=== PATIENT | female | born 1960 | race Caucasian/White ===

== ENCOUNTER 2020-02-14 13:46 | Outpatient (CLI) | payer BC, SELFPAY ==
--- NOTE | ~2020-02-14 | XR_ITS ---
EXAMINATION: XR chest 2V 02/14/2020 15:11 INDICATION: History of hypertension PROCEDURE: 2 view chest COMPARISON: 07/19/2019 FINDINGS: The lungs are clear. The cardiomediastinal silhouette is within normal limits. There are no pleural effusions. There is no pneumothorax suspected. IMPRESSION: 1: NO ACUTE CARDIOPULMONARY DISEASE. Reviewed, dictated and finalized at location B.
[2020-02-14 15:13] LABS: Basophils Percent Auto 0.7 % (0.2-1.2); Eosinophils Absolute Auto 0.1 K/mm3 (0-0.3); Eosinophils Percent Auto 2.7 % (0-4.4); Hematocrit 40.7 % (37.0-47.0); Hemoglobin 13.3 g/dL (12.0-15.0); Immature Granulocyte Absolute 0.01 K/mm3 (0.00-0.031); Immature Granulocyte Percent A 0.2 % (0-0.5); Lymphocytes Percent Auto 33.8 % (18.3-44.2); Mean Corpuscular HGB Conc 32.7 g/dl (32-36); Mean Corpuscular Volume 88.9 fl (80-100); Mean Platelet Volume 9.8 fl (7.4-10.4); Monocytes Absolute Auto 0.3 K/mm3 (0.1-0.6); Monocytes Percent Auto 6.8 % (2.6-8.5); Neutrophils Absolute Auto 2.3 K/mm3 (1.3-6.7); Neutrophils Percent Auto 55.8 % (45.5-73.1); Platelet Count Result 221 k/mm3 (150-375); Red Blood Count 4.58 M/mm3 (4.2-5.4); Red Cell Distribution Width 14.8 % (11.5-14.5); White Blood Count 4.1 K/mm3 (4.5-10.0)
[2020-02-14 15:18] LABS: Albumin Level 4.2 g/dL (3.5-5.1); Blood Urea Nitrogen 16 mg/dL (7-17); Calcium 9.3 mg/dL (8.4-10.2); Carbon Dioxide 28 mmol/L (22-30); Chloride 104 mmol/L (98-107); Estimated Glomerular Filt Rate 51; Glucose 91 mg/dL (65-105); Potassium 3.9 mmol/L (3.4-5.0); Sodium 137 mmol/L (137-145)
[2020-02-14 15:20] LABS: Hemoglobin A1C 5.4 % (<5.7)
[2020-02-14 16:00] LABS: Urine Cotinine NEGATIVE
== END 2020-02-14 13:47 | disposition home or self-care (01) ==
LOC: ANHSURGERY 13:49
PROVIDERS: PCP Physician Assistant; Visit Provider Orthopaedic Surgery
DX: M17.12 Unilateral primary osteoarthritis, left knee (principal)
CPT/HCPCS: 36415; 71046; 80048; 80307; 82040; 83036; 85025; 87070

== ENCOUNTER 2020-03-04 01:17 | Outpatient (CLI) | payer BC, SELFPAY ==
[2020-03-04 16:17] LABS: SARS-CoV-2 RNA PCR Negative
== END 2020-03-04 01:18 | disposition home or self-care (01) ==
LOC: ANHCOVIDDT 01:17
PROVIDERS: PCP Physician Assistant; Visit Provider Orthopaedic Surgery
DX: Z01.812 Encounter for preprocedural laboratory examination (principal); Z11.59 Encounter for screening for other viral diseases
CPT/HCPCS: 87635; C9803; U0003

== ENCOUNTER 2020-03-06 01:05 | Day surgery (SDC) | payer BC, SELFPAY ==
[2020-02-14 13:54] VITALS: BMI 33.8
[2020-02-14 14:53] VITALS: BP 147/96; PULSE 64; RESP 18; TEMP 36.9; O2SAT 100
--- NOTE | 2020-03-05 07:03 | HP_ITS ---
DATE OF SERVICE: ADMISSION DIAGNOSIS: Degenerative joint disease, left knee. HISTORY OF PRESENT ILLNESS: The patient is a 60-year-old female patient of Dr. Lamine Reis, presents today for left total knee arthroplasty. She underwent right total knee arthroplasty by Dr. Gutierrez in August of this year. She is very happy with her results. Knee is not hurting her at all. Her left knee unfortunately has [id number] arthritis, medial compartment, with moderate patellofemoral arthritis. She has had continued symptoms in the knee and feels at this point she would like to proceed with left total knee arthroplasty. PAST MEDICAL HISTORY: She had complications from her right total knee. Cardiac complications, she developed a stress-induced cardiomyopathy with a blood clot that developed in her left ventricle 1 week postop. This was treated with high-dose blood thinners and within a month, blood clot had resolved. She also had a decrease of her ejection fraction as well down to 50%. She has been seeing Dr. Noble, the board design engineer, and at her last evaluation of testing with Dr. Noble. She had normal left ventricular ejection fraction as well as motion. She has had a recent echo, which showed that her left ventricular function was back to normal. Past medical history is also significant for hypothyroidism, hypertensive disorder. CURRENT MEDICATIONS: She takes alprazolam 0.5 mg as needed for anxiety, amitriptyline 25 mg at bedtime, carvedilol 25 mg daily, Entresto twice a day, Lasix 20 mg daily, levothyroxine 112 mcg daily, lisinopril HCTZ 20/25 daily, Paxil 20 mg daily, rosuvastatin 10 mg daily, trazodone 50 mg daily. ALLERGIES: HAS NO KNOWN DRUG ALLERGIES. FAMILY HISTORY IS NEGATIVE. PHYSICAL EXAMINATION: VITAL SIGNS: She is 5 feet 6 inches, 206 pounds. Other vital signs can be found on nurse sheet on the morning surgery. HEENT: Grossly normal. LUNGS: Clear bilaterally. HEART: Regular rate and rhythm. EXTREMITIES: Her left knee, she has range of motion of 5 to 135 degrees. No effusion. Normal stability in the knee. Minimal medial joint line tenderness. Moderate pain with patellofemoral grind. Hip range of motion causes no discomfort. Negative Stinchfield maneuver. Normal quad strength. 2+ dorsalis pedis and posterior tibial pulse. No edema in either lower extremity. Skin is all normal. IMAGING DATA: X-rays demonstrate [id number] arthritis of medial compartment as well as medial patellofemoral arthritis as well, seen on sunrise view. IMPRESSION AND PLAN: The patient is very happy with her right total knee and wished to proceed with the left. Surgical procedure as well as risks complications were discussed. All questions were answered. We will proceed. The patient will see Dr. Reis as well as Dr. Noble, board design engineer, for presurgical clearance. Dr. Noble has recommended that she stay on a baby aspirin through surgery due to her history of blood clot in the ventricle. He also has recommended the patient not receive any TXA perioperatively as well. We will avoid these. Chem panel, creatinine is 1.10 with a GFR of 51. The rest of her Chem panel is within normal limits. Hemoglobin 13.3, platelets are 221. Her nasal swab was negative. D I MT: Avel
--- NOTE | 2020-03-05 10:29 | WPDANESEPPF ---
Anes - Initial Pre Proc Eval Procedure: Operation Date: 03/06/20 07:30 Proposed Procedures p Left Total Knee Arthroplasty - Constantine Gutierrez MD Date/Time: 03/05/20 10:29 Surgeon: Constantine Gutierrez MD Pre Op Diagnosis: OA Left Knee Patient Data Age: 60 Gender: F Height: 1.68 m Weight: 95.2 kg Last Vital Signs Temp 36.9 C 02/14/20 14:53 Pulse 64 02/14/20 14:53 Resp 18 02/14/20 14:53 BP 147/96 H 02/14/20 14:53 Pulse Ox 100 02/14/20 14:53 Allergies Allergy/AdvReac Type Severity Reaction Status Date / Time NSAIDS (Non-Steroidal AdvReac HX GI Verified 02/19/20 09:37 Anti-Inflamma BLEEDING Home Medications Medication Instructions Recorded Confirmed Type carvedilol 25 mg tablet 25 mg PO Q12H 11/13/19 03/06/20 History pitavastatin calcium 1 mg tablet 2 mg PO DAILY 11/13/19 03/06/20 History levothyroxine 112 mcg tablet 112 mcg PO DAILY #90 tablet 01/31/20 03/06/20 Rx acetaminophen 1,000 mg PO Q6HR PRN 02/14/20 03/06/20 History amitriptyline 25 mg PO HS 02/14/20 03/06/20 History aspirin [Adult Low Dose Aspirin] 81 mg PO DAILY 02/14/20 03/06/20 History calcium carbonate-vitamin D3 1 cap PO DAILY 02/14/20 03/06/20 History [Calcium 600 + D(3)] cholecalciferol (vitamin D3) 50 mcg PO DAILY 02/14/20 03/06/20 History cyanocobalamin (vitamin B-12) 2,500 mcg PO DAILY 02/14/20 03/06/20 History docusate sodium [Stool Softener] 50 mg PO DAILY 02/14/20 03/06/20 History sacubitril-valsartan [Entresto] 1 tablet PO BID 02/14/20 03/06/20 History Patient hx anesthesia problems: none Family hx anesthesia problems: none PMFSH Past Medical History Medical History (Updated 03/06/20 @ 06:39 by Trever Lund DO) History of ST elevation myocardial infarction (STEMI) 08/2019 - blood clot in L ventricle following R TKA, unknown reason, treated with warfarin, no other stent intervention required. Heart has made full recovery. Hypertension Hypothyroidism JACOB (obstructive sleep apnea) The patient had gotten a different mask she had a nasal pillow and then got a mask but has not tried the new mass Osteoarthritis Tinnitus Vertigo Surgical History Surgical History Cataract extraction status Bilateral H/O Spinal surgery History of hysterectomy Status post total right knee replacement Social History Social History Smoking packs per day: 0.5 Smoking cigarettes per day: 10.0 Years smoked: 10 Smoking pack-years: 5.00 Smoking status: Former smoker Tobacco type: cigarettes Second hand tobacco smoke exposure: No Smoking end date: 08/02/04 Additional smoking assessment comments: DENIES ANY FORM OF TOBACCO USE Alcohol intake: current Alcohol use details: WINE 2 DRINKS PER MONTH Substance use: never Living arrangements: with family Gender identity (if verbalized by the patient): Female Spiritual care concerns: No Anes - Eval Final PreProcedure Day of Procedure 03/05/20 10:29 Patient weight: obese Heart: regular rate and rhythm Lungs: clear to auscultation and normal air movement Airway: Mallampati scale class II Neurological: alert and oriented Last oral intake: >/= 8 hours ASA classification: III Emergent: no Anesthetic plan: proceed Anesthesia type and monitoring: general LMA and standard monitoring Other findings: Will hold TXA due to previous left ventricular blood clot s/p R TKA Informed Consent: The patient's anesthetic plan and its attendant risks and benefits were discussed with the patient/family/POA. Questions were solicited and answers provided to the satisfaction of the patient/family/POA.
[2020-03-06] VITALS (14 sets, daily range): BP systolic 121–152; BP diastolic 79–98; PULSE 55–108; RESP 10–20; TEMP 36–36.8; O2SAT 97–100
--- NOTE | ~2020-03-06 | XR_ITS ---
EXAMINATION: XR chest 1V portable EXAM DATE: 03/06/2020 20:07 INDICATION: Mid to right-sided chest pain radiating posteriorly. History of blood clots and high bloo d pressure. TECHNIQUE: Portable AP frontal chest x-ray was obtained. There is no prior study for comparison. FINDINGS: The lungs are clear. There are no pleural effusions. Cardiac silhouette is prominent but magnified on this AP technique. There is no pneumothorax suspected. The bones and soft tissues are unremarkable. There is no significant interval change. IMPRESSION: No acute cardiopulmonary findings. Reviewed, dictated and finalized at location A.
--- NOTE | ~2020-03-06 | CT_ITS ---
EXAMINATION: CTA chest PE protocol EXAM DATE: 03/06/2020 20:48 INDICATION: Mid to right-sided chest pain radiating posteriorly. History of blood clots and high bloo d pressure. TECHNIQUE: Spiral CTA of the chest (pulmonary arteries) was performed with 100 cc Omnipaque 350 intr avenous contrast injection. Images were acquired during the pulmonary arterial phase. Coronal maxi mum intensity projection 3D-reconstructions were created by the technologist on dedicated workstation . Axial, coronal and sagittal reformatted images were reviewed. The dose-length product (DLP) for t his examination was 382.95 mGy-cm. The exposure was tailored according to patient size (auto mA exp osure control), and iterative reconstruction (ASIR) was used as additional dose reduction technique. There is no prior study for comparison. FINDINGS: Pulmonary arteries are well opacified and without intraluminal filling defects. No thora cic aortic dissection. The lungs are clear. There are no pleural or pericardial effusions. Trach eobronchial tree is patent. There is no mediastinal, hilar or axillary lymphadenopathy. There is no pneumothorax. Heart normal in size. No evidence of coronary arterial calcification. Upper abd omen is unremarkable. There is mild thoracic spondylosis without osteoblastic or osteolytic lesions identified. IMPRESSION: 1. Unremarkable CT pulmonary examination. Reviewed, dictated and finalized at location A.
--- NOTE | ~2020-03-06 | XR_ITS ---
XR knee LT 2V DATE: 03/06/2020 10:48 INDICATION: Left total knee replacement TECHNIQUE: Postoperative AP and crosstable lateral views COMPARISON: None FINDINGS: Status post left total knee arthroplasty with patellar resurfacing. Normal alignment at the joint. There is expected postoperative subcutaneous emphysema and intra-articular gas. No fracture or dislocation is evident. No periosteal reaction or bone destruction or any unusual unex pected radiopaque foreign body is detected. IMPRESSION: Status post left total knee arthroplasty with patellar resurfacing Reviewed, dictated and finalized at location B.
[2020-03-06] MEDS: LACTATED RINGERS 1,000 ML 30 ML IV CONT ×2 (06:35→10:49)
[2020-03-06] MEDS: ACETAMINOPHEN 500 MG TABLET 1000 MG PO ×4 (06:45→23:24)
--- NOTE | 2020-03-06 07:13 | WPDHPUPDATE1 ---
History and Physical Update Update Date/Time: 03/06/20 07:13 History and Physical has been reviewed, including an updated exam of the patient. There are NO changes in the patient's condition. Risks, benefits, and alternatives have been discussed and questions answered. Patient agrees to proceed with procedure.
[2020-03-06] MEDS: KETOROLAC 15 MG/ML VIAL (*BKC) IV PUSH (07:15)
[2020-03-06] MEDS: ceFAZolin 2 GM/D5W 50 ML 2 GM/50 ML BAG IVPB (07:28)
[2020-03-06] MEDS: ceFAZolin SODIUM 1 GM VIAL 3 GM IRRIGATION (07:53)
[2020-03-06] MEDS: GENTAMICIN BONE CEMENT REFOBACIN 1 EACH TOPICAL (09:11)
[2020-03-06] MEDS: ceFAZolin SODIUM 1 GM VIAL IV PUSH (09:47)
--- NOTE | 2020-03-06 10:48 | PM.PROC ---
Procedure Note - Detailed Date of procedure: 03/06/20 Pre-op diagnosis: OA Left Knee Post-op diagnosis: same Procedure performed: Left total knee replacement Implants: [employer] Anesthesia: GETA Surgeon: Constantine Gutierrez MD Clinical Safety Specialist: Ciara Montes Tourniquet time (min): 107 Drains: No Packing: No Pathology: none sent Complications: No immediate complications Condition: stable Disposition: PACU
[2020-03-06] MEDS: ONDANSETRON INJ 4 MG/2 ML VIAL IV PUSH (15:18)
[2020-03-06] MEDS: SENNA/DOCUSATE SODIUM TABLET 2 TAB PO (16:41)
--- NOTE | 2020-03-06 18:06 | ECG_ITS ---
Measurements Intervals R[place] Rate: 76 P: 31 WY: 186 QRS: 16 QRSD: 114 T: 28 QT: 399 QTc: 450 Interpretive Statements SINUS RHYTHM WITH MARKED SINUS ARRHYTHMIA INCOMPLETE RIGHT BUNDLE BRANCH BLOCK ST-T WAVE ABNORMALITY IN ANTEROLATERAL LEADS- CONSIDER ISCHEMIA BASELINE ARTIFACT- I, III, AVR, AVL, V3 ABNORMAL ECG Electronically Signed On 03-06-2020 18:47:47 CDT by Stevie Mauricio D.O.
[2020-03-06 19:08] LABS: Troponin I < 0.012 ng/mL (0.000-0.034)
--- NOTE | 2020-03-06 19:44 | PM.IMCN ---
Assessment and Plan Assessment and plan (1) Chest pain: Code(s): R07.9 - Chest pain, unspecified Status: Acute Assessment and Plan: Chest pain now resolved. CTA Chest did not demonstrate any acute pulmonary embolism. Troponin was negative. Continue to monitor for any further chest pain. NItroglycerin PRN. Consider this may have been secondary to musculoskeletal vs. anxiety? Consider Cardiology consult in am if the patient has any recurrent symptoms. (2) History of arthroplasty of left knee: Code(s): Z96.652 - Presence of left artificial knee joint Status: Acute Assessment and Plan: Continue Ortho recommendations. (3) JACOB (obstructive sleep apnea): Code(s): G47.33 - Obstructive sleep apnea (adult) (pediatric) Status: Chronic Assessment and Plan: Continue cpap. (4) Hypothyroidism: Code(s): E03.9 - Hypothyroidism, unspecified Status: Chronic Assessment and Plan: Continue levothyroxine. (5) Hypertension: Code(s): I10 - Essential (primary) hypertension Status: Chronic Assessment and Plan: Monitor blood pressure. Continue home Entresto. HPI Data of Consult Consult date: 03/07/20 Requesting Physician: Constantine Gutierrez MD Primary Care Provider: Lamine Reis PA-C Consult Narrative Narrative: Thank you for consulting us to see this 60 year old female who is s/p left hip total knee arthroplasty and who today around 5:45 pm began to experience midsternal chest discomfort. The patient's history is remarkable for having an left ventricular thrombus in August 2019 after having her right knee replaced. Tonight the patient had finished eating some oatmeal about 60 minutes prior to her chest discomfort. She was laying in bed when she started to experience a burning, pressure like midsternal sensation that radiated toward her back and sides. She thought it might have been heart burn but as it persisted she became worried. She denies that her discomfort was positional, pleuritic, or palpable. Her pain lasted about 5-10 minutes and resolved on its own without any medication. Associated symptoms were anxiety and she verbalized to me that she felt like she was having a panic attack. The patient denies any recent fevers, chills, cough, shortness of breath, abdominal pain, nausea, vomiting, LE swelling, redness or rectal bleeding. Her left knee pain is currently controlled. CTA Chest for PE has been ordered by our STORE WORKER and the patient is awaiting to go to CT. No other complaints at this time. The patient had a normal stress test in August of this year with a normal EF of 71%. Review of Systems Review of Systems: All systems reviewed & are unremarkable except as noted in HPI and below PMFSH Past Medical History Medical History History of ST elevation myocardial infarction (STEMI) 08/2019 - blood clot in L ventricle following R TKA, unknown reason, treated with warfarin, no other stent intervention required. Heart has made full recovery. Hypertension Hypothyroidism JACOB (obstructive sleep apnea) The patient had gotten a different mask she had a nasal pillow and then got a mask but has not tried the new mass Osteoarthritis Tinnitus Vertigo Surgical History Surgical History Cataract extraction status Bilateral H/O Spinal surgery History of hysterectomy Status post total right knee replacement Social History Social History Smoking packs per day: 0.5 Smoking cigarettes per day: 10.0 Years smoked: 10 Smoking pack-years: 5.00 Smoking status: Former smoker Tobacco type: cigarettes Second hand tobacco smoke exposure: No Smoking end date: 08/02/04 Additional smoking assessment comments: DENIES ANY FORM OF TOBACCO USE Alcohol intake: current Alcohol use det
[2020-03-06 19:54] LABS: Anion Gap 12.7 mmol/L (7-16); Blood Urea Nitrogen 20 mg/dL (7-17); Calcium 8.8 mg/dL (8.4-10.2); Carbon Dioxide 23 mmol/L (22-30); Chloride 102 mmol/L (98-107); Estimated CRCL calculation 58 ml/min; Estimated Glomerular Filt Rate 51; Glucose 145 mg/dL (65-105); Potassium 3.7 mmol/L (3.4-5.0); Sodium 134 mmol/L (137-145)
[2020-03-06] MEDS: carvediloL 25 MG TABLET PO (20:58)
[2020-03-06] MEDS: AMITRIPTYLINE HCL 25 MG TABLET PO (20:58)
[2020-03-06] MEDS: SACUBITRIL/VALSARTAN 49-51 MG TABLET 1 TABLET PO (20:58)
[2020-03-07] VITALS (8 sets, daily range): BP systolic 100–117; BP diastolic 76–78; PULSE 80–107; RESP 16–20; TEMP 36.6; O2SAT 96–100
[2020-03-07 05:37] LABS: Basophils Percent Auto 0.2 % (0.2-1.2); Hemoglobin 10.5 g/dL (12.0-15.0); Immature Granulocyte Absolute 0.05 K/mm3 (0.00-0.031); Immature Granulocyte Percent A 0.4 % (0-0.5); Lymphocytes Absolute Auto 0.79 K/mm3 (0.9-3.2); Lymphocytes Percent Auto 6.7 % (18.3-44.2); Mean Corpuscular HGB Conc 32.8 g/dl (32-36); Mean Corpuscular Hemoglobin 29.4 pg (26-34); Mean Corpuscular Volume 89.6 fl (80-100); Monocytes Absolute Auto 0.6 K/mm3 (0.1-0.6); Monocytes Percent Auto 5.4 % (2.6-8.5); Neutrophils Absolute Auto 10.2 K/mm3 (1.3-6.7); Neutrophils Percent Auto 87.3 % (45.5-73.1); Platelet Count Result 192 k/mm3 (150-375); Red Blood Count 3.57 M/mm3 (4.2-5.4); Red Cell Distribution Width 14.6 % (11.5-14.5); White Blood Count 11.7 K/mm3 (4.5-10.0)
[2020-03-07 05:45] LABS: Anion Gap 8.3 mmol/L (7-16); Blood Urea Nitrogen 18 mg/dL (7-17); Calcium 8.9 mg/dL (8.4-10.2); Carbon Dioxide 27 mmol/L (22-30); Chloride 102 mmol/L (98-107); Estimated CRCL calculation 53 ml/min; Estimated Glomerular Filt Rate 46; Glucose 135 mg/dL (65-105); Potassium 4.3 mmol/L (3.4-5.0); Sodium 133 mmol/L (137-145)
[2020-03-07] MEDS: ACETAMINOPHEN 500 MG TABLET 1000 MG PO (06:23)
[2020-03-07] MEDS: LEVOTHYROXINE SODIUM 112 MCG TABLET PO (06:23)
--- NOTE | 2020-03-07 07:09 | PM.PNORT ---
Progress Note: A&P Additional Plan POD 1 avss alert ,pain is well controlled, had episode of some chest discomfort yesterday, EKG done-no changes, pain went away quickly and no additional issues. wd-dry pt has been up walking . pt had other knee done recently-very comfortable and wanting to go home today, CR- slight increase today, Subjective Subjective Date/Time Seen: 03/07/20 07:09 Objective Data Vital Signs Vital Signs: Vital Signs - 24 hr 03/06/20 10:49 03/06/20 11:00 03/06/20 11:15 Temperature 36.4 C Pulse Rate 70 62 62 Respiratory Rate 12 11 L 10 L Blood Pressure 121/88 138/93 H 134/88 Pulse Oximetry 98 100 99 03/06/20 11:30 03/06/20 11:45 03/06/20 12:15 Temperature 36.0 C L Pulse Rate 61 55 L 61 Respiratory Rate 10 L 13 14 Blood Pressure 139/89 139/79 152/98 H Pulse Oximetry 99 99 100 03/06/20 12:32 03/06/20 13:06 03/06/20 14:10 Temperature 36.3 C L 36.1 C L 36.5 C Pulse Rate 60 62 83 Respiratory Rate 14 14 16 Blood Pressure 152/87 H 147/83 H 143/93 H Pulse Oximetry 100 97 100 03/06/20 17:45 03/06/20 20:00 03/06/20 20:58 Temperature 36.8 C Pulse Rate 108 H 104 H 104 H Respiratory Rate 16 Blood Pressure 137/79 Pulse Oximetry 100 03/06/20 22:00 03/07/20 00:00 03/07/20 02:00 Temperature 36.7 C 36.6 C Pulse Rate 104 H 91 90 Respiratory Rate 20 18 Blood Pressure 123/86 104/78 Pulse Oximetry 99 96 03/07/20 04:00 Temperature Pulse Rate 82 Respiratory Rate Blood Pressure Pulse Oximetry Intake/Output Intake/Output: Intake & Output 03/04/20 03/05/20 03/06/20 03/07/20 23:59 23:59 23:59 23:59 Intake Total 2090 250 Output Total 2500 Balance -410 250 Meds/Results Medications: Active Medications Generic Name Dose Route Start Last Admin Trade Name Freq PRN Reason Stop Dose Admin Acetaminophen 1,000 mg 03/06/20 12:00 03/07/20 06:23 Tylenol Tablet PO 1,000 mg Q6H SERAFIN Administration Amitriptyline HCl 25 mg 03/06/20 21:00 03/06/20 20:58 Elavil PO 25 mg HS [facility] Administration Apixaban 2.5 mg 03/07/20 09:00 Eliquis PO 03/18/20 21:01 Q12HR [facility] Aspirin 81 mg 03/07/20 09:00 Aspirin Ec PO DAILY [facility] Carvedilol 25 mg 03/06/20 21:00 03/06/20 20:58 Coreg PO 25 mg Q12HR [facility] Administration Cyanocobalamin 2,000 mcg 03/07/20 09:00 Vitamin B-12 Tab PO DAILY [facility] Cyanocobalamin 500 mcg 03/07/20 09:00 Vitamin B-12 Tab PO DAILY [facility] Cefazolin Sodium 1 gm in 50 mls @ 100 mls/hr 03/06/20 15:00 03/07/20 06:24 Ancef 1 Gm/D5w 50 Ml Pm IVPB 03/07/20 07:29 100 mls/hr Q8H [facility] Administration Levothyroxine Sodium 112 mcg 03/07/20 06:30 03/07/20 06:23 Synthroid PO 112 mcg DAILY@0630 [facility] Administration Morphine Sulfate 2 mg 03/06/20 14:49 Morphine Sulfate Inj IV PUSH Q4H PRN Pain Rated 7-10 Naloxone HCl 0.1 mg 03/06/20 11:57 Narcan IV PUSH Q2M PRN Opiate Reversal Non-Formulary Medication 2 mg 03/07/20 09:00 Pitavastatin Calcium [Livalo] PO 04/06/20 09:01 DAILY [facility] Ondansetron HCl 4 mg 03/06/20 15:05 03/06/20 15:18 Zofran Inj IV PUSH 4 mg Q6H PRN Administration Nausea And Vomiting Oxycodone HCl 5 mg 03/06/20 12:00 03/07/20 04:57 Roxicodone Ir Tablet PO 5 mg Q4H [facility] Administration Oxycodone HCl 5 mg 03/06/20 11:57 03/06/20 19:04 Roxicodone Ir Tablet PO 5 mg Q4H PRN Administration Pain Rated 4-6 Polyethylene Glycol 17 gm 03/07/20 09:00 Miralax PO QAM [facility] Sacubitril/Valsartan 1 tablet 03/06/20 21:00 03/06/20 20:58 Entresto 49 Mg-51 Mg Tablet PO 1 tablet Q12HR [facility] Administration Senna/Docusate Sodium 2 tab 03/06/20 17:00 03/06/20 16:41 Senokot S Tablet PO 2 tab BID [facility] Administration Vitamin D 2,000 unit 03/07/20 09:00 Vitamin D PO DAILY [facility] Radiology Results: ITS Impressions Knee X-Ray 03/06/20 11:57 IMPRESSION: Status po
[2020-03-07] MEDS: CYANOCOBALAMIN 1,000 MCG TABLET 2000 MCG PO (08:47)
[2020-03-07] MEDS: APIXABAN 2.5 MG TABLET PO (08:48)
[2020-03-07] MEDS: SENNA/DOCUSATE SODIUM TABLET 2 TAB PO (08:48)
[2020-03-07] MEDS: CYANOCOBALAMIN 500 MCG TABLET PO (08:48)
[2020-03-07] MEDS: ASPIRIN 81 MG ENTERIC TABLET PO (08:48)
[2020-03-07] MEDS: carvediloL 25 MG TABLET PO (08:48)
[2020-03-07] MEDS: CHOLECALCIFEROL 1,000 UNIT TABLET 2000 UNITS PO (08:49)
[2020-03-07] MEDS: polyethylene glycoL 3350 17 GM POWD.PACK PO (08:49)
[2020-03-07] MEDS: SACUBITRIL/VALSARTAN 49-51 MG TABLET 1 TABLET PO (08:49)
--- NOTE | 2020-03-07 10:58 | DS_ITS ---
DATE OF DISCHARGE: 03/07/2020 DIAGNOSIS: Degenerative joint disease, right knee. The patient is a 60-year-old female, who underwent left total knee arthroplasty by Dr. Gutierrez on 03/06/2020. Underwent procedure without any complications. Postoperative, she has been afebrile. Vital signs have been stable. Neurovascularly intact. Her wound is dry. She had a little bit of chest discomfort when she got to the floor following surgery. She had EKG which showed no abnormalities. Chest discomfort quickly dissipated. Otherwise, she has been doing well. Pain is well controlled with scheduled Tylenol as well as oxycodone 5 mg 1 or 2 q.4 hours. She is weightbearing as tolerated. She is on Eliquis for 2 weeks. She is also to continue her low-dose aspirin through this. She will transition to baby aspirin once she is done with the Eliquis. The patient is moving well with physical therapy and ready to be discharged home on 03/07. She is advised to keep the leg elevated at home to prevent swelling. Hemoglobin on postop day 1 was 10.5, platelets 192. Sodium was slightly low at 133, but patient was tolerating this well. Creatinine had gone up from 1.1 to 1.2. The patient is on no Celebrex. The patient was advised when she goes home, if she has any questions or concerns, she should call the office. Otherwise, we will see her on appointed date. She was also strongly advised if any chest discomfort or issues because of her history of stress-induced cardiomyopathy, if she has any symptoms, she should go to the emergency room immediately and she understands that. D I MT: Avel
--- NOTE | 2020-03-07 11:26 | PM.IMPN ---
Progress Note: A&P Assessment and Plan (1) Chest pain: Code(s): R07.9 - Chest pain, unspecified Status: Acute Assessment and Plan: Chest pain now resolved. CXR was negative. CTA Chest did not demonstrate any acute pulmonary embolism. Troponin was negative. She denies any more symptoms of chest pain or shortness of breath since last night. She believes it is related to an anxiety attack. She does follow-up with Dr. Noble who gave further cardiac clearance for the surgery and I informed her she has a follow-up with him if she continues have any more chest pain or shortness of breath symptoms. patient is cleared from medical standpoint to be discharged home to follow-up with ortho as an outpatient postop. (2) History of arthroplasty of left knee: Code(s): Z96.652 - Presence of left artificial knee joint Status: Acute Assessment and Plan: Continue Ortho recommendations. POD #1 (3) JACOB (obstructive sleep apnea): Code(s): G47.33 - Obstructive sleep apnea (adult) (pediatric) Status: Chronic Assessment and Plan: Continue cpap. (4) Hypothyroidism: Code(s): E03.9 - Hypothyroidism, unspecified Status: Chronic Assessment and Plan: Continue levothyroxine. (5) Hypertension: Code(s): I10 - Essential (primary) hypertension Status: Chronic Assessment and Plan: Monitor blood pressure. Continue home Entresto. Time Spent With Patient Time with patient: 25 - 35 minutes Subjective Date/time seen: 03/07/20 11:26 Interval history: Date of service 03/07/2020: patient states she is feeling much better today not having any more chest pain or shortness of breath. She believes yesterday she had a panic attack because with her prior surgery she developed a DVT and PE. she denies any fevers, chills, chest pain, shortness of breath, cough, nausea, vomiting, abdominal pain, leg swelling, calf pain, diarrhea, or any other symptoms at this time. She is feeling well postop day 1 from her knee surgery and is ready to be discharged home. Review of Systems Review of Systems: All systems reviewed & are unremarkable except as noted in HPI and below Exam Narrative: Exam Narrative: General: 60-year-old woman sitting up in bed. Appears comfortable. In no acute distress. Skin: No jaundice or cyanosis. Good skin turgor. Neck: Full range of motion. Supple. Respiratory: Lungs are clear to auscultation bilaterally. No bony chest wall tenderness. Cardiovascular: The heart has a regular rate and rhythm without murmur. Lower extremities: Left knee with lisseth wrap in place and ice pack. Chris hose bilateral lower extremities. No lower extremity edema. Distal pulses are easily palpated. No calf tenderness to palpation. Gastrointestinal: The abdomen is soft, nontender and nondistended with active bowel sounds. Psychiatric: Lucid and oriented. Memory intact. Neurologic: No focal deficits. Speech is clear. No facial drooping. Objective Data Vital Signs Vital Signs: Vital Signs - 24 hr 03/06/20 11:30 03/06/20 11:45 03/06/20 12:15 Temperature 96.8 F L Pulse Rate 61 55 L 61 Respiratory Rate 10 L 13 14 Blood Pressure 139/89 139/79 152/98 H Pulse Oximetry 99 99 100 03/06/20 12:32 03/06/20 13:06 03/06/20 14:10 Temperature 97.3 F L 96.9 F L 97.7 F Pulse Rate 60 62 83 Respiratory Rate 14 14 16 Blood Pressure 152/87 H 147/83 H 143/93 H Pulse Oximetry 100 97 100 03/06/20 17:45 03/06/20 20:00 03/06/20 20:58 Temperature 98.2 F Pulse Rate 108 H 104 H 104 H Respiratory Rate 16 Blood Pressure 137/79 Pulse Oximetry 100 03/06/20 22:00 03/07/20 00:00 03/07/20 02:00 Temperature 98.1 F 9
== END 2020-03-07 11:31 | disposition home or self-care (01) ==
LOC: ANHSURGERY 05:58 → ANH2MED 12:04
PROVIDERS: Family Medicine; Nurse Practitioner; PCP Physician Assistant; Visit Provider Orthopaedic Surgery
PROC: (CPT 27447; principal; 2020-03-06 07:30)
DX: M17.12 Unilateral primary osteoarthritis, left knee (principal); R07.9 Chest pain, unspecified; I10 Essential (primary) hypertension; I25.2 Old myocardial infarction; E03.9 Hypothyroidism, unspecified; G47.33 Obstructive sleep apnea (adult) (pediatric); Z79.82 Long term (current) use of aspirin; Z87.891 Personal history of nicotine dependence; E66.9 Obesity, unspecified; Z68.33 Body mass index [BMI] 33.0-33.9, adult
CPT/HCPCS: 27447; 36415; 71045; 71275; 73560; 80048; 84484; 85025; 86850; 86900; 86901; 93005; 97110; 97116; 97161; 97165; A9270; C1713; C1776; J0131; J0171; J0330; J0690; J1100; J1170; J1885; J2250; J2270; J2370; J2405; J2704; J2795; J3010; J3370; J7120; Q9967

== ENCOUNTER 2022-10-01 09:29 | Emergency (ER) | payer BC, SELFPAY ==
--- NOTE | ~2022-10-01 | CT_ITS ---
EXAMINATION: CT abdomen pelvis w con DATE: 10/01/2022 12:34 INDICATION: Right upper and lower quadrant pain TECHNIQUE: Computed tomography (CT) of the abdomen and pelvis was performed with 100 cc Omnipaque 350 intravenous contrast. The dose-length product was 597.36 mGy-cm. Automated exposure control and iter ative reconstruction technique were employed. COMPARISON: None. FINDINGS: There is dependent atelectasis. Heart size normal. No significant pleural or pericardial ef fusion. No significant vascular abnormality. No lymphadenopathy. The spleen, pancreas, adrenal glands are unremarkable. There are bilateral renal cysts. Gallbladder is present. Nonobstructive bowel misti jian. Normal appendix. Nonobstructive bowel pattern. No free air or free fluid. Uterus is surgically a bsent. Moderate lumbar spondylosis. No abnormal pelvic masses or fluid collections. IMPRESSION: 1. No acute abdominal abnormality. Reviewed, dictated and finalized at location L. GER SAFE
--- NOTE | ~2022-10-01 | US_ITS ---
US abdomen limited INDICATION: Lower back and abdomen pain for one week PROCEDURE: Realtime right upper abdominal ultrasound. COMPARISON: No prior studies for comparison. FINDINGS: The pancreas is normal without focal mass or pancreatic ductal dilation. Liver echotexture is normal without focal mass or intrahepatic biliary dilatation. There is normal directional flow i n the portal vein. The gallbladder is normal without stones, gallbladder wall thickening or pericholecystic fluid. Comm on bile duct measures 6 mm. No sonographic Franklin's sign. IMPRESSION: 1: Normal limited abdominal ultrasound. Reviewed, dictated and finalized at location L. Y CLEANER
[2022-10-01 09:38] VITALS: BP 180/100; PULSE 89; RESP 16; TEMP 36.4; O2SAT 99
[2022-10-01 11:09] VITALS: BP 162/92; PULSE 52; RESP 18; O2SAT 100
--- NOTE | 2022-10-01 12:10 | ED.GENADULT ---
HPI - General Adult General Chief complaint: Back Pain/Injury Stated complaint: severe lower back pain Time Seen by Provider: 10/01/22 10:18 History of Present Illness HPI narrative: 62-year-old female presenting to the emergency department for evaluation of worsening right flank and abdominal pain. Patient states her symptoms started with right back pain. Patient did have follow-up with her chiropractor but this was not helping her pain. Patient states over the last few days he has been developing associate abdominal pain as well. Patient reports that she last night. Patient was post. Primary care physician today but presented to the ED for further work-up. Patient does have associated nausea but denies any vomiting. Patient denies any diarrhea. Patient denies any prior history of gallbladder disease. Patient has a prior history of high cholesterol, hypertension, hypothyroidism. Related Data Home Medications Medication Instructions Recorded Confirmed carvedilol 25 mg tablet 25 mg PO Q12H 11/13/19 05/06/22 aspirin 81 mg tablet,delayed 81 mg PO DAILY 02/14/20 05/06/22 release (Adult Low Dose Aspirin) sacubitril 49 mg-valsartan 51 mg 1 tablet PO BID 02/14/20 05/06/22 tablet (Entresto) Allergies Allergy/AdvReac Type Severity Reaction Status Date / Time NSAIDS (Non-Steroidal AdvReac HX GI Verified 10/01/22 08:41 Anti-Inflamma BLEEDING Review of Systems Review of Systems: CONSTITUTIONAL: Denies fever, chills, or sweats. EYES: Denies visual changes, redness, or discharge. ENT: Denies rhinorrhea, congestion, sore throat, or otalgia. CARDIOVASCULAR: Denies chest pain, palpitations, or edema. RESPIRATORY: Denies cough or dyspnea. GASTROINTESTINAL: See HPI. GENITOURINARY: Denies dysuria or hematuria. SKIN: Denies rash or itching. MUSCULOSKELETAL: See HPI NEUROLOGIC: Denies headache, numbness, or weakness. [facility] Past Medical History Medical History Anemia History of ST elevation myocardial infarction (STEMI) 08/2019 - blood clot in L ventricle following R TKA, unknown reason, treated with warfarin, no other stent intervention required. Heart has made full recovery. Hypertension Hypothyroidism JACOB (obstructive sleep apnea) The patient had gotten a different mask she had a nasal pillow and then got a mask but has not tried the new mass Osteoarthritis Sharron-menopausal Tinnitus Vertigo Wears hearing aid in both ears Surgical History Surgical History Cataract extraction status Bilateral H/O Spinal surgery History of arthroplasty of left knee History of hysterectomy Status post total right knee replacement Social History Social History Smoking packs per day: 0.5 Smoking cigarettes per day: 10.0 Years smoked: 10 Smoking pack-years: 5.00 Smoking status: Former smoker Tobacco type: cigarettes Second hand tobacco smoke exposure: No Smoking end date: 08/02/04 Additional smoking assessment comments: DENIES ANY FORM OF TOBACCO USE Alcohol intake: current Alcohol use details: occasional Substance use: never Lack of Transportation: No Lack of Food: Never True Current Housing: I Have Housing Concerned About Future Housing: No Difficulty Paying Gas/Electric Bills: No Difficulty Paying for Meds: No Currently Unemployed: No Education: High School Diploma/GED Difficulty w/ Childcare or Family Care: No Living arrangements: with family Gender identity (if verbalized by the patient): Female Spiritual care concerns: No Exam Narrative: APPEARANCE: Well appearing, no pain, no distress, well-nourished. HEAD: normocephalic, atraumatic. EYES: PERRLA/EOMI, conjunctivae clear. NOSE: Normal no drainage NECK: Supple. No adenopathy, no masses. RESPIRATORY: Airway patent, respirations nonlabored. Clear to au
[2022-10-01] MEDS: SODIUM CHLORIDE 0.9% IV 1,000 ML 999 ML IV CONT (12:16)
[2022-10-01] MEDS: HYDROmorphone HCL INJ (*CRX) 1 MG/ML SYR IV PUSH (12:17)
[2022-10-01] MEDS: ONDANSETRON INJ 4 MG/2 ML VIAL IV PUSH ×2 (12:17→14:43)
[2022-10-01 12:30] LABS: Estimated CRCL calculation 59 ml/min; Estimated Glomerular Filt Rate 57
[2022-10-01 12:53] LABS: Basophils Percent Auto 0.5 % (0.2-1.2); Eosinophils Absolute Auto 0.1 K/mm3 (0-0.3); Eosinophils Percent Auto 2.4 % (0-4.4); Hematocrit 39.5 % (37.0-47.0); Immature Granulocyte Absolute 0.01 K/mm3 (0.00-0.031); Immature Granulocyte Percent A 0.2 % (0-0.5); Lymphocytes Percent Auto 29.3 % (18.3-44.2); Mean Corpuscular HGB Conc 32.9 g/dl (32-36); Mean Corpuscular Hemoglobin 29.7 pg (26-34); Mean Corpuscular Volume 90.4 fl (80-100); Mean Platelet Volume 9.5 fl (7.4-10.4); Monocytes Absolute Auto 0.3 K/mm3 (0.1-0.6); Monocytes Percent Auto 6.6 % (2.6-8.5); Neutrophils Absolute Auto 2.5 K/mm3 (1.3-6.7); Platelet Count Result 182 k/mm3 (150-375); Red Blood Count 4.37 M/mm3 (4.2-5.4); Red Cell Distribution Width 13.4 % (11.5-14.5); White Blood Count 4.1 K/mm3 (4.5-10.0)
[2022-10-01 12:54] LABS: Appearance Urine Clear (Clear); Bilirubin Urine Negative (Negative); Blood Urine Negative (Negative); Color Urine Yellow (Yellow); Glucose Urine UA Negative (Negative); Ketones Urine Negative (Negative); Leukocyte Esterase Ur Negative LEU/UL (Negative); Nitrate Urine Negative (Negative); Protein Urine Negative (Negative); Urobilinogen Urine 0.2 mg/dL (<2.0)
[2022-10-01 12:58] LABS: Add Urine Microscopic? NO
[2022-10-01 13:01] LABS: Alanine Aminotransferase 21 U/L (6-35); Albumin Level 4.1 g/dL (3.5-5.1); Alkaline Phosphatase 54 U/L (38-126); Anion Gap 5 mmol/L (8-16); Aspartate Amino Transferase 26 U/L (14-36); Bilirubin,Total 0.7 mg/dL (0.2-1.3); Blood Urea Nitrogen 18 mg/dL (7-17); Calcium 9.2 mg/dL (8.4-10.2); Carbon Dioxide 27 mmol/L (22-30); Chloride 104 mmol/L (98-107); Estimated CRCL calculation 65 ml/min; Estimated Glomerular Filt Rate > 60; Glucose 85 mg/dL (65-110); Lipase 126 U/L (23-300); Potassium 3.7 mmol/L (3.4-5.0); Sodium 136 mmol/L (137-145)
[2022-10-01 13:33] VITALS: BP 150/95; PULSE 42; RESP 18; O2SAT 100
[2022-10-01 14:54] VITALS: BP 157/93; PULSE 52; RESP 18; O2SAT 100
== END 2022-10-01 14:55 | disposition home or self-care (01) ==
PROVIDERS: Emergency Provider Emergency Medicine; PCP Physician Assistant
DX: R10.9 Unspecified abdominal pain (principal); I25.2 Old myocardial infarction; I10 Essential (primary) hypertension; E03.9 Hypothyroidism, unspecified; G47.33 Obstructive sleep apnea (adult) (pediatric); Z87.891 Personal history of nicotine dependence; Z79.82 Long term (current) use of aspirin
CPT/HCPCS: 74177; 76705; 80053; 81003; 83690; 85025; 96361; 96374; 96375; 96376; 99284; J1170; J2405; J7030; Q9967

== ENCOUNTER 2022-10-20 06:36 | Outpatient (CLI) | payer BC, SELFPAY ==
--- NOTE | ~2022-10-20 | MR_ITS ---
MRI of the lumbar spine Clinical History: Pain Technique: Axial T2-weighted images, and sagittal T1-weighted, T2-weighted, and T2 fat-sat images wer e acquired. Findings: There is no fracture or subluxation of the lumbar spine. Vertebral bodies maintain normal h eight and alignment. No suspicious bone marrow signal abnormality identified. At L1-L2, there is minimal facet arthropathy. No disc bulge or herniation. No spinal canal stenosis o r neural foraminal narrowing. At L2-L3, there is mild facet arthropathy. No spinal canal stenosis or neural foraminal narrowing. No disc bulge or herniation. At L3-L4, there is probable minimal left foraminal disc bulge. There is facet joint arthropathy. No s rigo canal stenosis and probable mild left lateral recess stenosis and minimal left neural foraminal narrowing. Right neural foramen preserved. At L4-L5, there is mild left foraminal disc bulge. There is facet arthropathy bilaterally. Probable m inimal left lateral recess stenosis. Neural foramina are preserved. At L5-S1, there is no disc bulge or herniation. There is mild facet arthropathy. No spinal canal sten osis or neural foraminal narrowing. Paravertebral soft tissues are unremarkable. Impression: Mild degenerative spondylosis, as detailed above. Reviewed, dictated and finalized at location M. Impression: Mild degenerative spondylosis, as detailed above.
== END 2022-10-20 06:37 | disposition home or self-care (01) ==
PROVIDERS: PCP Physician Assistant; Visit Provider Physician Assistant
DX: M47.896 Other spondylosis, lumbar region (principal)
CPT/HCPCS: 72148

== ENCOUNTER 2023-02-04 07:42 | Outpatient (CLI) | payer BC, SELFPAY ==
[2023-02-04 08:06] LABS: Basophils Percent Auto 1.3 % (0.2-1.2); Eosinophils Absolute Auto 0.1 K/mm3 (0-0.3); Eosinophils Percent Auto 3.5 % (0-4.4); Hematocrit 36.8 % (37.0-47.0); Hemoglobin 12.2 g/dL (12.0-15.0); Immature Granulocyte Absolute 0.01 K/mm3 (0.00-0.031); Immature Granulocyte Percent A 0.3 % (0-0.5); Lymphocytes Absolute Auto 1.07 K/mm3 (0.9-3.2); Lymphocytes Percent Auto 33.9 % (18.3-44.2); Mean Corpuscular HGB Conc 33.2 g/dl (32-36); Mean Corpuscular Hemoglobin 30.8 pg (26-34); Mean Corpuscular Volume 92.9 fl (80-100); Mean Platelet Volume 9.2 fl (7.4-10.4); Monocytes Absolute Auto 0.3 K/mm3 (0.1-0.6); Monocytes Percent Auto 8.5 % (2.6-8.5); Neutrophils Absolute Auto 1.7 K/mm3 (1.3-6.7); Neutrophils Percent Auto 52.5 % (45.5-73.1); Platelet Count Result 161 k/mm3 (150-375); Red Blood Count 3.96 M/mm3 (4.2-5.4); Red Cell Distribution Width 13.2 % (11.5-14.5); White Blood Count 3.2 K/mm3 (4.5-10.0)
[2023-02-04 08:10] LABS: Alanine Aminotransferase 29 U/L (6-35); Albumin Level 3.7 g/dL (3.5-5.1); Alkaline Phosphatase 44 U/L (38-126); Anion Gap 2 mmol/L (8-16); Aspartate Amino Transferase 31 U/L (14-36); Bilirubin,Total 0.5 mg/dL (0.2-1.3); Blood Urea Nitrogen 21 mg/dL (7-17); Calcium 8.9 mg/dL (8.4-10.2); Carbon Dioxide 28 mmol/L (22-30); Chloride 107 mmol/L (98-107); Cholesterol 175 mg/dL (0-200); Estimated Glomerular Filt Rate > 60; Glucose 88 mg/dL (65-110); HDL Direct 70 mg/dL; Sodium 137 mmol/L (137-145); Triglycerides 88 mg/dL (<150)
[2023-02-04 08:21] LABS: LDL Cholesterol Direct 75 mg/dL
[2023-02-04 08:40] LABS: Thyroid Stimulating Hormone < 0.015 uIU/mL (0.465-4.680)
== END 2023-02-04 07:43 | disposition home or self-care (01) ==
LOC: ANHLAB 07:44
PROVIDERS: PCP Physician Assistant; Visit Provider Physician Assistant
DX: E03.9 Hypothyroidism, unspecified (principal); R73.9 Hyperglycemia, unspecified; D64.9 Anemia, unspecified; E78.5 Hyperlipidemia, unspecified
CPT/HCPCS: 36415; 80053; 80061; 84439; 84443; 85025

== ENCOUNTER 2023-03-19 07:19 | Outpatient (CLI) | payer BC, SELFPAY ==
--- NOTE | ~2023-03-19 | XR_ITS ---
EXAMINATION: XR shoulder RT min 2V DATE: 03/19/2023 07:38 INDICATION: Right shoulder pain TECHNIQUE: AP internally and externally rotated, AP oblique externally rotated and transscapular Y vi ews of the right shoulder were obtained. COMPARISON: None FINDINGS: Normal alignment. No fracture.Mild glenohumeral and acromioclavicular osteoarthritis. Prominent cyst ic change on the superior facet of the greater tuberosity which can be seen in the setting of chronic rotator cuff disease. Severe cervical facet osteoarthritis. Soft tissues are unremarkable. Visualize d portions of the lungs are clear. IMPRESSION: 1. Mild right glenohumeral and acromioclavicular osteoarthritis. 2. Cystic change along the greater tuberosity suggestive of rotator cuff disease. Reviewed, dictated and finalized at location A. IMPRESSION: 1. Mild right glenohumeral and acromioclavicular osteoarthritis. 2. Cystic change along the greater tuberosity suggestive of rotator cuff diseas e.
[2023-03-19 10:51] LABS: Free T4 Free Thyroxine 1.86 ng/mL (0.78-2.19)
[2023-03-19 10:57] LABS: Thyroid Stimulating Hormone 0.097 uIU/mL (0.465-4.680)
== END 2023-03-19 07:20 | disposition home or self-care (01) ==
PROVIDERS: PCP Physician Assistant; Visit Provider Physician Assistant
DX: E03.9 Hypothyroidism, unspecified (principal); M19.011 Primary osteoarthritis, right shoulder
CPT/HCPCS: 36415; 73030; 84439; 84443

== ENCOUNTER 2023-05-31 13:38 | Outpatient (CLI) | payer BC, SELFPAY ==
--- NOTE | ~2023-05-31 | MR_ITS ---
EXAMINATION: MR cervical spine wo con DATE: 05/31/2023 14:25 INDICATION: Neck pain. TECHNIQUE: Magnetic resonance imaging (MRI) of the cervical spine was performed without intravenous c ontrast. COMPARISON: None FINDINGS: There is 2 mm anterolisthesis of C4 on C5 and C7 on T1. Vertebral body heights are normal. There is moderately decreased disc height at C5-C6 and C6-C7. The spinal cord signal intensity is nor mal. The following disc levels are specifically discussed: C2-C3: There is a central protrusion. There is no uncovertebral joint osteoarthritis. There is ankylo sis of the right facet joint with mild hypertrophy. There is moderate left facet joint osteoarthritis . There is no neural foraminal stenosis. There is no central canal stenosis. C3-C4: There is a central extrusion. There is mild left uncovertebral joint osteoarthritis. There is severe bilateral facet joint osteoarthritis. There is mild left neural foraminal stenosis. There is m ild central canal stenosis. C4-C5: The disc does not extend beyond the endplate margin. There is no uncovertebral joint osteoarth ritis. There is severe bilateral facet joint osteoarthritis. There is mild bilateral neural foraminal stenosis. There is no central canal stenosis. C5-C6: The disc is bulging. There is mild bilateral uncovertebral joint osteoarthritis. There is kaz re bilateral facet joint osteoarthritis. There is no neural foraminal stenosis. There is mild central canal stenosis. C6-C7: The disc is bulging. There is mild bilateral uncovertebral joint osteoarthritis. There is mode rate right and severe left facet joint osteoarthritis. There is mild bilateral neural foraminal steno sis. There is mild central canal stenosis. C7-T1: The disc does not extend beyond the endplate margin. There is no uncovertebral joint osteoarth ritis. There is severe bilateral facet joint osteoarthritis. There is mild bilateral neural foraminal stenosis. There is no central canal stenosis. IMPRESSION: 1. Moderate cervical spondylosis. Reviewed, dictated and finalized at location E.
== END 2023-05-31 13:39 | disposition home or self-care (01) ==
PROVIDERS: PCP Physician Assistant; Visit Provider Orthopaedic Surgery
DX: R20.2 Paresthesia of skin (principal); M47.892 Other spondylosis, cervical region
CPT/HCPCS: 72141

== ENCOUNTER 2023-06-03 02:11 | Day surgery (SDC) | payer BC, SELFPAY ==
[2023-06-02 13:30] VITALS: BMI 30.2
[2023-06-03] VITALS (10 sets, daily range): BP systolic 115–150; BP diastolic 77–102; PULSE 57–75; RESP 16–20; TEMP 36.7; O2SAT 96–100; BMI 29.9
[2023-06-03 08:44] LABS: Basophils Percent Auto 0.8 % (0.2-1.2); Eosinophils Absolute Auto 0.1 K/mm3 (0-0.3); Eosinophils Percent Auto 2.8 % (0-4.4); Hematocrit 41.3 % (37.0-47.0); Hemoglobin 13.5 g/dL (12.0-15.0); Immature Granulocyte Absolute 0.02 K/mm3 (0.00-0.031); Immature Granulocyte Percent A 0.5 % (0-0.5); Lymphocytes Absolute Auto 1.11 K/mm3 (0.9-3.2); Lymphocytes Percent Auto 28.5 % (18.3-44.2); Mean Corpuscular HGB Conc 32.7 g/dl (32-36); Mean Corpuscular Hemoglobin 29.9 pg (26-34); Mean Corpuscular Volume 91.6 fl (80-100); Mean Platelet Volume 9.7 fl (7.4-10.4); Monocytes Absolute Auto 0.3 K/mm3 (0.1-0.6); Monocytes Percent Auto 7.2 % (2.6-8.5); Neutrophils Absolute Auto 2.4 K/mm3 (1.3-6.7); Neutrophils Percent Auto 60.2 % (45.5-73.1); Platelet Count Result 174 k/mm3 (150-375); Red Blood Count 4.51 M/mm3 (4.2-5.4); Red Cell Distribution Width 13.7 % (11.5-14.5); White Blood Count 3.9 K/mm3 (4.5-10.0)
[2023-06-03 08:50] LABS: Anion Gap 3 mmol/L (8-16); Blood Urea Nitrogen 26 mg/dL (7-17); Calcium 9.5 mg/dL (8.4-10.2); Carbon Dioxide 26 mmol/L (22-30); Chloride 107 mmol/L (98-107); Estimated CRCL calculation 70 ml/min; Estimated Glomerular Filt Rate > 60; Glucose 92 mg/dL (65-110); Sodium 136 mmol/L (137-145)
--- NOTE | 2023-06-03 10:38 | WPDHPUPDATE1 ---
History and Physical Update Update Date/Time: 06/03/23 10:38 History and Physical has been reviewed, including an updated exam of the patient. There are NO changes in the patient's condition. Risks, benefits, and alternatives have been discussed and questions answered. Patient agrees to proceed with procedure.
--- NOTE | 2023-06-03 10:38 | WPDMODSED ---
Moderate Sedation Note-Pt Data Patient Data Diagnosis: Abnormal stress test Present Complaint: Abnormal stress test Procedure to be performed/Plan: Coronary angiography, left heart cath, +/- PCI Allergies Allergy/AdvReac Type Severity Reaction Status Date / Time NSAIDS (Non-Steroidal AdvReac HX GI Verified 06/02/23 11:32 Anti-Inflamma BLEEDING Home Medications Medication Instructions Recorded Confirmed Type carvedilol 25 mg tablet 25 mg PO Q12H 11/13/19 06/03/23 History aspirin 81 mg tablet,delayed 81 mg PO DAILY 02/14/20 06/03/23 History release (Adult Low Dose Aspirin) sacubitril 49 mg-valsartan 51 mg 1 tablet PO BID 02/14/20 06/03/23 History tablet (Entresto) cyclobenzaprine 10 mg tablet 10 mg PO BID PRN muscle spasm #60 10/07/22 06/02/23 Rx tabs pitavastatin calcium 2 mg tablet 2 mg PO DAILY #90 tabs 10/27/22 06/03/23 Rx celecoxib 200 mg capsule 200 mg PO DAILY #90 caps 01/26/23 06/02/23 Rx alprazolam 0.25 mg tablet 0.25 mg PO QHS PRN anxiety #10 tabs 03/23/23 06/02/23 Rx escitalopram oxalate 10 mg tablet 10 mg PO DAILY #90 tabs 04/13/23 06/02/23 Rx levothyroxine 100 mcg tablet 100 mcg PO DAILY #30 tabs 05/19/23 06/03/23 Rx Current Medications: Active Medications Sodium Chloride (Normal Saline Iv) 500 mls @ 100 mls/hr IV CONT .Q5H SERAFIN Sedation/Anesthesia: No previous sedation/anesthesia problems (including family history). [facility] Past Medical History Medical History Anemia History of ST elevation myocardial infarction (STEMI) 08/2019 - blood clot in L ventricle following R TKA, unknown reason, treated with warfarin, no other stent intervention required. Heart has made full recovery. Hypertension Hypothyroidism JACOB (obstructive sleep apnea) The patient had gotten a different mask she had a nasal pillow and then got a mask but has not tried the new mass Osteoarthritis Sharron-menopausal Tinnitus Vertigo Wears hearing aid in both ears Surgical History Surgical History Cataract extraction status Bilateral H/O Spinal surgery History of arthroplasty of left knee History of hysterectomy Status post total right knee replacement Social History Social History Smoking packs per day: 0.5 Smoking cigarettes per day: 10.0 Years smoked: 10 Smoking pack-years: 5.00 Smoking status: Former smoker Tobacco type: cigarettes Second hand tobacco smoke exposure: No Smoking end date: 08/02/07 Additional smoking assessment comments: DENIES ANY FORM OF TOBACCO USE Alcohol intake: never Alcohol use details: occasional Substance use: never Substance use type: does not use Lack of Transportation: No Lack of Food: Never True Current Housing: I Have Housing Concerned About Future Housing: No Difficulty Paying Gas/Electric Bills: No Difficulty Paying for Meds: No Currently Unemployed: No Education: High School Diploma/GED Difficulty w/ Childcare or Family Care: No Living arrangements: with family Gender identity (if verbalized by the patient): Female Sexual Orientation (if Verbalized by the Patient): Straight or Heterosexual Spiritual care concerns: No Mod Sed Physical Exam Physical Exam Pre Procedural Exam: Normal: Appearance, Heart Rate, Heart Rhythm, Neuro Exam, Abdomen, Extremities and Skin Hours since solid foods: 12 Hours since liquid intake: 8 Mallampati Classification: class II Internal Medicine - PN: Obj Da Vital Signs Vital Signs: Vital Signs - 24 hr 06/03/23 08:30 Temperature 36.7 C Pulse Rate 57 L Respiratory Rate 18 Blood Pressure 145/95 H Pulse Oximetry 98 Oxygen Delivery Room Air Meds/Results Medications: Active Medications Generic Name Dose Route Start Last Admin Trade Name Freq PRN Reason Stop Dose Admin Sodium Chloride 500 mls @ 100 mls/hr 06/03/23 08:30
--- NOTE | 2023-06-03 11:27 | P.PCNCC_ITS ---
Cardiac Cath Procedure Note Date of procedure:: 06/03/23 Performing physician:: CATHETERIZATION LABORATORY REPORT Procedure Date: 06/03/2023 Planting Supervisor: Jack Ramirez M.D., [facility]? Referring Physician: Darnell Noble M.D. ? Anesthesia: Versed and Fentanyl were ordered and given in my presence at 10:57, procedure ended at 11:15. Supervision of nurse monitored moderate sedation with Versed and Fentanyl was provided for 18 minutes. Total of Versed 1mg and Fentanyl 25mcg were administered by the Inclined Railway Operator RN Charisma Ochoa. Pre-op Diagnosis: Coronary artery disease Post-op Diagnosis: Non-obstructive coronary arteries Procedure(s): Coronary angiography Access Site: Right radial artery Brief History and Clinical Indications: Patient is a 63 year old female who is referred for [facility] for chest pain in the setting of abnormal stress test. All risks, benefits and alternatives to left heart catheterization with or without percutaneous coronary intervention was discussed at length with the patient. Risk of complications including but not limited to bleeding, infection, arrhythmia, stroke, worsening kidney function, blood loss, groin hematoma, limb loss, emergency coronary artery bypass grafting, and even were discussed with the patient and all questions were answered. The patient understood and wished to proceed. Time out called, patient name, date of , medical record number, allergies, procedure performed, identify Planting Supervisor, patient and staff member concurred with accurate data, procedure carried on. Findings: LEFT HEART CATHETERIZATION FINDINGS: 1. Left main: Large caliber vessel. The left main coronary artery is widely patent without any significant obstructive disease. 2. Left anterior descending: Large caliber vessel. The LAD and the diagonal branches have mild luminal irregularities without any significant obstructive angiographic disease. 3. Left circumflex: Large caliber vessel. The left circumflex artery and the main marginal branches have mild luminal irregularities without any significant obstructive angiographic disease. The left circumflex artery is the dominant vessel. 4. Right coronary artery: Medium caliber vessel. The RCA has mild luminal irregularities without any significant obstructive angiographic disease. The RCA is the non-dominant vessel. Description of Procedure: Informed consent signed and placed in the chart. Patient transferred to micro lab analyst room. Prepped and draped in usual sterile fashion. 2% lidocaine injected subcutaneously in right wrist area. 22-gauge venipuncture catheter used to access the right radial artery under ultrasound guidance. 6-FR slender sheath placed in right radial artery. Nitroglycerine and Verapamil were given intraarterial through the sheath. Versacore wire advanced under fluoroscopy 5F FL 4 diagnostic catheter engaged Left Main Coronary Artery. 5F Tig 4 diagnostic catheter engaged Right Coronary Artery Multiple orthogonal angiogram obtained and reviewed Hemostasis was achieved by application of TR band. ? Assessment: Non-obstructive coronary arteries Post Operative Condition: Stable No significant blood loss Disposition: Home Plan: The patient will be monitored in the recovery area. The above findings were discussed with the referring physician. Continue aggressive medical therapy and risk factor modification. ? Jack Ramirez M.D. Interventional Cardiology
== END 2023-06-03 15:25 | disposition home or self-care (01) ==
PROVIDERS: PCP Physician Assistant; Visit Provider Internal Medicine
PROC: (CPT 93454; principal; 2023-06-03 10:00)
DX: R94.39 Abnormal result of other cardiovascular function study (principal); R07.9 Chest pain, unspecified; I10 Essential (primary) hypertension; I25.2 Old myocardial infarction; E03.9 Hypothyroidism, unspecified; G47.33 Obstructive sleep apnea (adult) (pediatric); Z79.82 Long term (current) use of aspirin; Z87.891 Personal history of nicotine dependence
CPT/HCPCS: 36415; 80048; 85025; 93454; C1769; C1887; C1894; J1644; J2250; J2305; J3010; J7040

== ENCOUNTER 2024-04-27 07:05 | Outpatient (CLI) | payer BC, SELFPAY ==
[2024-04-27 08:01] LABS: Alanine Aminotransferase 17 U/L (6-35); Albumin Level 3.8 g/dL (3.5-5.1); Alkaline Phosphatase 37 U/L (38-126); Anion Gap 6 mmol/L (4-12); Aspartate Amino Transferase 28 U/L (14-36); Bilirubin,Total 0.4 mg/dL (0.2-1.3); Blood Urea Nitrogen 28 mg/dL (7-17); Calcium 8.9 mg/dL (8.4-10.2); Carbon Dioxide 25 mmol/L (22-30); Chloride 106 mmol/L (98-107); Cholesterol 205 mg/dL (0-200); Estimated Glomerular Filt Rate > 60; Glucose 92 mg/dL (65-110); HDL Direct 76 mg/dL; Potassium 3.9 mmol/L (3.4-5.0); Sodium 137 mmol/L (137-145); Triglycerides 70 mg/dL (<150)
[2024-04-27 08:10] LABS: Hemoglobin A1C 5.3 % (<5.7)
[2024-04-27 08:12] LABS: LDL Cholesterol Direct 103 mg/dL
[2024-04-27 08:39] LABS: Free T4 Free Thyroxine 1.04 ng/mL (0.78-2.19)
== END 2024-04-27 07:06 | disposition home or self-care (01) ==
PROVIDERS: PCP Internal Medicine; Visit Provider Internal Medicine
DX: E03.9 Hypothyroidism, unspecified (principal); R73.9 Hyperglycemia, unspecified; E78.5 Hyperlipidemia, unspecified; I10 Essential (primary) hypertension; R53.83 Other fatigue
CPT/HCPCS: 36415; 80053; 80061; 83036; 84439; 84443

== ENCOUNTER 2024-09-01 06:52 | Outpatient (CLI) | payer BC, SELFPAY ==
--- NOTE | ~2024-09-01 | XR_ITS ---
EXAMINATION: XR UGI w barium swallow DATE: 09/01/2024 09:27 INDICATION: Dysphagia TECHNIQUE: The patient drank thick and thin barium. Fluoroscopy of the hypopharynx and esophagus was performed. Fluoroscopy exposure time was 2.4 minutes. The total number of images was 278. The dose-ar ea product was 16.8 Gy-cm^2. COMPARISON: None. FINDINGS: There is no mass or stricture of the esophagus. Esophageal motility is normal. There is no hiatal hernia. There is moderate gastroesophageal reflux without provocative maneuvers. A 1 cm barium pill was then ingested which demonstrated significant delay in passage at the aortic kn ob without delay at the gastroesophageal junction. IMPRESSION: Extrinsic compression of the esophagus by the aortic knob, delaying passage of a 1 cm barium tablet, as detailed above. Moderate gastroesophageal reflux is also noted. No esophageal dysmotility. Reviewed, dictated and finalized at location A. MUD THICKENER OPERATOR
--- OUTSIDE RECORDS SUMMARY | 2024-09-01 06:57 | XMS_ITS | Referral Summary ---
Author Organization [facility] [address] [place] [address] [address] [place] [address] Care Team Providers Care Staffing Clerk Name Role Phone Yon Perez Primary Care Provider [phone] Encounters Date Type Department Care Team Description 08/17/2024 Telephone [facility] Medical [facility] Cardiology [address] [place] [address] Simón Noble MD 06/05/2024 Telephone [facility] Medical [facility] Cardiology [address] [place] [address] Farida Zarate NP from Last 3 Months Allergies Active Allergy Reactions Criticality Noted Date Comments Nsaids (Non-Steroidal Anti-Inflammatory Drug) Other (See comments) Low 05/20/2021 H/o ulcers Medications aspirin 81 mg enteric coated tabletIndications :NICM (nonischemic cardiomyopathy) (CMS/HCC) (HCC),JACOB on CPAP,Hyperlipidem ia LDL goal <70,Left ventricular thrombus,Essentia l hypertension Take 1 tablet (81 mg total) by mouth daily 30 tablet 11 0 Active Livalo 2 mg tabletIndications :Hyperlipidemia LDL goal <70 Take 1 tablet by mouth once daily 30 tablet 11 1 Active escitalopram (LEXAPRO) 10 mg tablet Take 1 tablet (10 mg total) by mouth daily 3 Active cyclobenzaprine (FLEXERIL) 10 mg tablet Take 1 tablet (10 mg total) by mouth 2 (two) times a day as needed Active meloxicam (MOBIC) 15 mg tablet Take 1 tablet (15 mg total) by mouth daily 3 Active sacubitriL-valsar muñoz (Entresto) 49-51 mg tablet Take 1 tablet by mouth twice daily 180 tablet 3 4 Active levothyroxine (SYNTHROID) 112 mcg tablet Take 1 tablet (112 mcg total) by mouth daily 4 Active celecoxib (CeleBREX) 100 mg capsule Take 1 capsule (100 mg total) by mouth 2 (two) times a day Active carvediloL (COREG) 25 mg tabletIndications :NICM (nonischemic cardiomyopathy) (CMS/HCC) ([facility]) Take 0.5 tablets (12.5 mg total) by mouth 2 (two) times a day with meals 4 Active Active Problems Problem Noted Date Diagnosed Date Palpitations 05/06/2023 Atypical chest pain 05/06/2023 History of COVID-19 05/20/2021 JACOB on CPAP 09/08/2019 NICM (nonischemic cardiomyopathy) ([facility]/HCC) 01/2020 Hyperlipidemia LDL goal <70 09/08/2019 [place] (myocardial infarction) 09/08/2019 Pain in extremity 01/27/2013 Hypertension 01/27/2013 Arthritis 01/27/2013 Resolved Problems Problem Noted Date Diagnosed Date Resolved Date Left ventricular thrombus 09/08/2019 Social History Tobacco Use Types Packs/Day Years Used Date Smoking Tobacco: Former Smokeless Tobacco: Never Tobacco Cessation:Counseling Given: Not Answered Comments:QUITE 15 YEARS AGO Alcohol Use Standard Drinks/Week Comments Never 0 (1 standard drink = 0.6 oz pur e alcohol) AUDIT-C Answer Date Recorded Frequency of Alcohol Consumption Never 09/08/2019 Average Number of Drinks Not on file 020 Frequency of Binge Drinking Not on file 01/2020 Comments Unknown Sex and Gender Information Value Date Recorded Sex Assigned at Not on file 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 Gender Identity Not on file Sexual Orientation Not on file Last Filed Vital Signs Vital Sign Reading Time Taken Comments Blood Pressure 140/86 05/25/2024 8:58 AM CDT Pulse 67 05/25/2024 8:58 AM CDT Temperature - - Respiratory Rate 18 05/12/2022 8:03 AM CDT Oxygen Saturation 95% 05/25/2024 8:58 AM CDT Inhaled Oxygen Concentration - - Weight 85.3 kg (188 lb) 05/25/2024 8:58 AM CDT Height 167.6 cm (5' 6 ) 05/25/2024 8:58 AM CDT Body Mass Index 30.34 05/25/2024 8:58 AM CDT Plan of Treatment Not on file [place] [employer] [place] [employer] [place] Care Teams Staffing Clerk Relationship Specialty Start Date End Date Yon Perez DO [address] [facility] [address] [place] [address] PCP - General Internal Medicine 05/25/24
--- OUTSIDE RECORDS SUMMARY | 2024-09-01 06:57 | XMS_ITS | Clinical Summary ---
Author Organization [facility] [address] Address [address] [place] [address] Care Team Providers Care Crystal Lapper Name Role Phone Yon Perez DO Primary Care Provider [phone] Allergies Active Allergy Reactions Criticality Noted Date [...] 25 mg tabletIndications :NICM (nonischemic cardiomyopathy) (CMS/HCC) ([facility]) Take 0.5 tablets (12.5 mg total) by mouth 2 (two) times a day with meals 4 Active Active Problems Problem Noted Date Diagnosed Date Palpitations 05/06/2023 Atypical chest pain 05/06/2023 History of COVID-19 05/20/2021 JACOB on CPAP 09/08/2019 NICM (nonischemic cardiomyopathy) (CMS/HCC) 01/2020 Hyperlipidemia LDL goal <70 09/08/2019 [place] (myocardial infarction) 09/08/2019 Pain in extremity 01/27/2013 Hypertension 01/27/2013 Arthritis 01/27/2013 Resolved Problems Problem Noted Date Diagnosed Date Resolved Date Left ventricular thrombus 09/08/2019 Encounters Date Type Department Care Team Description 08/17/2024 Telephone [facility] Medical [facility] Cardiology [address] [facility] [address] [place] [id number] Simón Noble MD 06/05/2024 Telephone [facility] Medical [facility] Cardiology [address] [place] [address] Farida Zarate NP from Last 3 Months Surgical History Surgery Date Site/Laterality Comments HYSTERECTOMY Hysterectomy - (Added by TW Conv) BACK SURGERY Back Surgery - (Added by [place]) Medical History Medical History Date Comments Clot Hypertension 2019 novel coronavirus disease (COVID-19) 0 mild symptoms Left ventricular thrombus 09/08/2019 Family History Medical History Relation Name Comments Hypertension Brother Hypertension - (Added by TW Conv) Diabetes Daughter Diabetes Mellit us - (Added by TW Conv) Heart attack Father Heart disease Father Heart Disease - (Added by Zuki Conv) Heart disease Mother Heart Disease - (Added by Zuki Conv) Stroke Mother Relation Name Status Comments Brother Daughter Father Mother Social History Tobacco Use Types Packs/Day Years [...] on file Legal Sex Female 4:23 AM [employer] DEVEL[employer] Gender Identity Not on file Sexual Orientation Not on file Obstetrics History Last Filed Vital Signs Vital Sign Reading [...] 05/25/2024 8:58 AM CDT Plan of Treatment Health Maintenance Due Date Last Done Comments Breast Cancer Screening-Mammogram 1962 Colon Cancer Screening-Colonoscopy 1962 Depression Screening 1962 Hepatitis C Screening 1962 DTaP/Tdap/Td Vaccine (1 - Tdap) 1973 Hepatitis B Screening 02/19/1980 Regular Well Visit/Exam 18-64 02/19/1980 Zoster Vaccine (1 of 2) 02/19/2012 Covid-19 Vaccine (3 - 2023-2 5 season) 2024 11/13/2020, 10/16/2020 Influenza Vaccine (#1) 2024 Pneumococcal vaccine <65 Aged Out No longer eligible based on patient's age to complete this topic Insurance [facility] [employer] [place] Care Teams Crystal Lapper Relationship Specialty Start Date End Date Yon Perez DO [address] [facility] [address] [place] [address] PCP - General Internal Medicine 05/25/24
--- OUTSIDE RECORDS SUMMARY | 2024-09-01 06:58 | XMS_ITS | Clinical Summary ---
Author Organization [facility] Address [address] [place] [address]. [place], [place] [id number] [place] [id number] Care Team Providers Care Automatic Pattern Edger Name Role Phone Yosef Guadalupe MD Primary Care Provider [phone] Allergies Active Allergy Reactions Criticality Noted Date Comments Nsaids Other (see comment) Low 05/20/2021 H/o ulcers Medications Levothyroxine Sodium 112 MCG Cap Take 112 mcg by mouth daily. 04/09/2019 Active aspirin 81 MG chewable tablet Chew 1 tablet (81 mg total) by mouth daily. Active carvedilol 25 MG tablet Take 1 tablet (25 mg total) by mouth 2 (two) times daily. Active meloxicam (MOBIC) 15 MG tablet Take 1 tablet (15 mg total) by mouth daily. 07/28/2023 Active escitalopram (LEXAPRO) 10 MG tablet Take 1 tablet (10 mg total) by mouth daily. 10/30/2022 Active celecoxib (CELEBREX) 100 MG capsule Take 1 capsule (100 mg total) by mouth 2 (two) times daily. Active sacubitril-vals uyen (ENTRESTO) 49-51 MG tablet Take 1 tablet by mouth 2 (two) times daily. Active Active Problems Problem Noted Date Diagnosed Date Neck pain 04/21/2023 Hyperlipidemia LDL goal <70 09/08/2019 [place] (myocardial infarction) 09/08/2019 JACOB on CPAP 09/08/2019 NICM (nonischemic cardiomyopathy) ([facility]) 08/20/2019 Left ventricular thrombus 08/20/2019 Acquired hypothyroidism 08/20/2019 Pulmonary emboli ([facility]) 08/17/2019 Disorder of thyroid gland 05/08/2019 Arthritis 01/27/2013 Hypertension 01/27/2013 Pain in extremity 01/27/2013 Family History Medical History Relation Comments Heart Disease Father Heart Disease Mother Relation Status Comments Father Mother Social History Tobacco Use Types Packs/Day Years Used Date Smoking Tobacco: Former Cigarettes Q uit: 1999 Smokeless Tobacco: Never Alcohol Use Standard Drinks/Week Comments Yes 0 (1 standard drink = 0.6 oz pur e alcohol) socially Comments No Sex and Gender Information Value Date Recorded Sex Assigned at Not on file Legal Sex Female 6:15 PM CDT Gender Identity Not on file Sexual Orientation Not on file Last Filed Vital Signs Vital Sign Reading Time Taken Comments Blood Pressure 141/91 05/10/2024 2:00 PM CDT Pulse 58 05/10/2024 2:00 PM CDT Temperature 35.8 ??C (96.5 ??F) 05/10/2024 11:29 AM C DT Respiratory Rate 17 05/10/2024 2:00 PM CDT Oxygen Saturation 100% 05/10/2024 2:00 PM CDT Inhaled Oxygen Concentration - - Weight 85.3 kg (188 lb 2 oz) 05/10/2024 11:29 AM CDT Height 170.2 cm (5' 7 ) 05/10/2024 11:29 AM CDT Body Mass Index 29.46 05/10/2024 11:29 AM CDT Plan of Treatment Health Maintenance Due Date Last Done Comments ASCVD Statin 1962 Colorectal Cancer Screening Colonoscopy (10 Years) 1962 Annual Physical 1965 Pneumococcal Vaccine: Pediatrics (0 to 5 Years) and At-Risk Patients (6 to 64 Years) (1 of 2 - PCV) 02/19/1968 Hepatitis C 02/19/1980 DTaP, Tdap and Td Vaccines (1 - Tdap) 1981 Mammogram Screening 2002 Zoster Vaccines (1 of 2) 02/19/2012 RSV Immunization or 60+ Years (1 - Risk 60-74 years 1-dose series) 2022 ASCVD LDL 07/20/2022 07/20/2021, 04/02, 10/13/2020, Additional history exists COVID-19 Vaccine (3 - 2023- season) 2024 11/13/2020, 10/16/2020 Influenza Adult (#1) 2024 Meningococcal B Vaccine Aged Out No l onger eligible based on patient's age to complete this topic Meningococcal Vaccine Aged Out No denice gwendolyn eligible based on patient's age to complete this topic RSV Immunizations Under 20 Months Aged Out No longer eligible based on patient's age to complete this topic Procedures Procedure Name Priority Date/Time Associated Diagnosis Comments LIPID PANEL Routine 07/20/2021 7:20 AM PLANT PACKER Blood tests for routine general physical examination from Last 3 Months or Most Recently Relevant to Health Maintenance Results * (ABNORMAL) LIPID PANEL (07/20/2021 7:20 AM PLANT PACKER) CHOLESTEROL 185 <200 MG/DL 07/20/2021 8:12 AM [facility] Comment: THE NATIONAL LIPID ASSOCIATION AND THE NATIONAL CHOLESTEROL EDUCATION PROGRAM (NCEP) HAVE SET THE FOLLOWING GUIDELINES FOR TOTAL CHOLESTEROL IN ADULTS AGES 18 AND UP. DESIRABLE: <200 BORDERLINE HIGH: 200-239 HIGH: > OR = 240 TRIGLYCERIDES 71 <150 MG/DL 07/20/2021 8:12 AM PLANT PACKER [facility] Comment: THE NATIONAL LIPID ASSOCIATION AND THE NATIONAL CHOLESTEROL EDUCATION PROGAM (NCEP) HAVE SET THE FOLLOWING GUIDELINES FOR TRIGLYCERIDES IN ADULTS AGES 18 AND UP. NORMAL: <150 BORDERLINE HIGH: 150 TO 199 HIGH: 200 TO 499 VERY HIGH: >499 HDL 62 >49 MG/DL 07/20/2021 8:12 AM PLANT PACKER [facility] Comment: THE NATIONAL LIPID ASSOCIATION AND THE NATIONAL CHOLESTEROL EDUCATION PROGAM (NCEP) HAVE SET THE FOLLOWING GUIDELINES FOR HDL CHOLESTEROL IN ADULTS AGES 18 AND UP. MALES: >39 FEMALES: >49 LDL (CALCULATED) 109(H) <100 MG/DL 07/20/20 8:12 AM PLANT PACKER [facility] Comment: THE NATIONAL LIPID ASSOCIATION AND THE NATIONAL CHOLESTEROL EDUCATION PROGAM (NCEP) HAVE SET THE FOLLOWING GUIDELINES FOR LDL CHOLESTEROL IN ADULTS AGES 18 AND UP. DESIRABLE: <100 ABOVE DESIRABLE: 100 TO 129 BORDERLINE HIGH: 130 TO 159 HIGH: 160 TO 189 VERY HIGH: >189 VLDL CALCULATION 14 MG/DL 07/20/20 8:12 AM PLANT PACKER [facility] Comment:REFERENCE RANGE NOT ESTABLISHED CHOL/HDL RATIO 3.0 07/20/2021 8:12 AM PLANT PACKER [facility] Comment:REFERENCE RANGE NOT ESTABLISHED LDL/HDL 1.8 07/20/2021 8:12 AM PLANT PACKER [facility] Comment:REFERENCE RANGE NOT ESTABLISHED NON HDL CHOLESTEROL 123 MG/DL 07/20/2021 8:12 AM PLANT PACKER [facility] Comment:REFERENCE RANGE NOT ESTABLISHED 07/20/2021 7:20 AM PLANT PACKER us Lamine Reis PA-C LABORATORY Final Resul t [facility] [address] [place] [address], from Last 3 Months or Most Recently Relevant to Health Maintenance Insurance [employer] Advance Directives * Full Code (Latest Code Status on File) Date Activated Date Inactivated Comments 08/17/2019 4:42 AM 08/21/2019 2:58 PM Care Teams Automatic Pattern Edger Relationship Specialty Start Date End Date Yosef Guadalupe MD [address] [place] [address] PCP - General INTERNAL MEDICINE 01/23/19
--- OUTSIDE RECORDS SUMMARY | 2024-09-01 06:58 | XMS_ITS | Data Portability ---
Author Organization [place] [facility], Main Office Address [address] [place] [address] Care Team Providers Care Product Design Manager Name Role Phone GIULIANO EDGE Primary Care Provider [phone] GIULIANO EDGE Referring Provider [phone] Assessment Encounter Date Assessment Date Assessment LastModified by Organization Details LastModified Time 04/12/2023 04/12/2023 HPI: 63-year-old female came in today for evaluation of her right arm and shoulder pain. She has been having symptoms for the better part of a year. They are slowly progressing. She complains of pain in the right side of her neck and trapezius. She is also getting pain between her shoulder blades. Pain is traveling to the lateral deltoid and down the arm. She will have occasional tingling in the index and long finger in the hand. She also complains at night when she gets home or when she is sleeping she has a lot of pain in the hands. 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 She does a lot of lifting and holding. She is cooking all the time and spent a lot hours dealing with this. Patient is on Celebrex 200 mg and has been on this for well over a year. It has helped a little bit with her hand pain from where was prior to being on the Celebrex. Patient came in with x-rays of her right shoulder from her primary care doctor which showed no arthritis of the glenohumeral joint. No superior migration. There is a cyst in the greater tuberosity, it looks like a benign cyst. The AC joint has minimal changes. Physical exam: 63-year-old female alert pleasant. She has active elevation right shoulder to 160, external rotation 90 internal rotation is to T10. She has minimal discomfort with range of motion. Subscap lift-off is intact. She has good strength with external rotation as well as abduction. There is no tenderness about the shoulder at the supraspinatus tendon insertion or the AC joint. Her right trapezius muscle has moderate tenderness to palpation. Her neck has decreased range of motion with both flexion and extension and rotation. She does have pain with range of motion of the neck and she feels this at the base of the right side of the neck. Spurling's maneuver initially was negative but once I was done and put her head back into the neutral position she started noticing symptoms running down the right arm. She does have a minimally positive Tinel's over the median nerve. Negative over the cubital tunnel. She has moderate tenderness to the 1st CMC joint at both thumbs. 2+ radial pulse in the wrist. She has normal motor function to the wrist fingers biceps and triceps. Impression: 63-year-old female who has neck pain with radicular symptoms into the right arm. Her shoulder moves well without any real discomfort. She has good strength in the shoulder so I think all in all her shoulder is in relatively good shape. She does have changes on the x-ray of her neck I think she is having radicular symptoms into the arm. Also having a lot of musculoskeletal pain up around the neck as well. She may also have some degree of early carpal tunnel syndrome due to the fact she is complaining a lot of pain in her hands at night. This may also be coming from the osteoarthritis of her 1st CMC joints. 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 His initial management I have recommended starting her on a Medrol Dosepak. She is going to hold off on the Celebrex while taking this to avoid any gastritis issues. We will also set her up with formal physical therapy on her neck. I am going to give her a cock-up wrist splints to wear on her wrists at night to see if this also helps improve any of her symptoms. 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 Again she may have some early carpal tunnel as well. We will set these measures up and see her back in a month. If she continues have symptoms I think the next step is to get MRI scan of her neck and also EMG study of her upper extremities as well. 30 minutes was spent and treatment patient more than half of this in [id number] conversation [facility] Not available 04/12/2023 15:36:55 05/14/2023 05/14/2023 impression: Patient is going through physical therapy for her neck for the past month. She is currently taking Celebrex she has used a Medrol Dosepak and she has only slightly improved. I have discussed with her different options for further evaluation of her symptoms. she has a complex constellation of symptoms and may have cervical spinal stenosis or cervical disc protrusion causing her to have neck pain pain in the top the shoulder aching in the forearm and numbness in her fingers and ulnar and dorsal forearm. 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 She may have both. She may have shoulder pathology causing her symptoms but her shoulder exam is benign today. Therefore I have suggested proceeding with MRI scan of her cervical spine and nerve conduction velocity EMG testing. I will see her back after the tests. 30 minutes were spent total care this patient more than half the time spent in [id number] care for Not available 05/15/2023 15:23:16 Plan of Treatment Reminders Order Date Submit Date Provider Last Modified By Organization Details Last Modified Time Details Appointments None recorded. Lab None recorded. Referral None recorded. Procedures None recorded. Surgeries None recorded. Imaging XR, cervical spine, 2 or 3 view 2022 023 [email or web address] [facility] [place], [facility] [address], [place], [address], 16:24:39 Medication Orders Medrol (Bigg) 4 mg tablets in a dose pack 2022 023 [email or web address] [facility] [address] [place], [address], 15:39:33 Patient TargetsNo targets recorded. Patient InstructionsNo instructions recorded. Reason for Referral None Reported. Results Created Date Observation Date Name Description Value Unit Range Abnormal Flag Note LastModifiedBy Organization Detail LastModifiedTime 03/07/20 21 XR, knee No observ ation record ed. [id number] [facility] [place] [address], [place], [address], 09/30/2022 06:08:16 03/24/20 23 03/19/2023 XR, shoul ginger, 2 or more view No observ ation record ed. [email or web address] Not Available 03/03 10:48:47 04/12/20 XR, cervi sumeet spine , 2 or 3 view No observ ation record ed. [email or web address] [facility] [place] [address], [place], [address], 04/12/2023 15:29:36 06/01/20 23 05/31/2023 MRI, cervi sumeet spine , w/o contr ast No observ ation record ed. [email or web address] [facility] [address], [place], [address], 06/01/2023 10:01:17 Result Notes None recorded. Problems Name Problem SNOMED Code Status Onset Date Resolution Date Notes Provider Name and Address Organization Details Recorded Time Disorder of thyroid gland 77293804 Active 2018 Not Available [facility] 3 06:01:58 Hypertensi ve disorder 39542822 Active 2018 Not Available [facility] 3 06:01:58 Pain of right shoulder joint 8876836031389 9100 Active 2022 MIKE Santa, [facility] 3 14:33:42 Neck pain 83265987 Active 2022 Belia Yu CMA null, [facility] 3 15:23:36 Spinal stenosis in cervical region 12037509 Active 2022 CARLOZ Preston, [facility] 16:17:18 Problem Notes None recorded. Procedures Surgical History Date Name Laterality Status Provider Name and Address Organization Details Recorded Time Back Surgery completed MIKE Santa [facility] 04/12/2023 14:32:05 Hysterectomy completed MIKE Santa [facility] 04/12/2023 14:32:11 Knee Replacement completed MIKE Ashby [facility] 04/12/2023 14:32:23 Imaging Results Imaging Date Name Status LastModified by Organiz ation Details LastModified Time 03/07/2021 XR, knee completed [id number] [facility] [place] [address] [facility] [address], [place], [address], 09/30/2022 06:08:16 03/19/2023 XR, shoulder, 2 or more view completed [email or web address] Information not available 03/24/2023 10:48:47 04/12/2023 XR, cervical spine, 2 or 3 view completed [email or web address] [facility] [place] [address] [facility] [address], [address], 04/12/2023 15:29:36 05/31/2023 MRI, cervical spine, w/o contrast completed [address], [place], [address], 06/01/2023 10:01:17 Procedure Notes None recorded. Medical Equipment None Reported. Allergies Allergen ID Allergen Name Allergen Category Reaction Reaction Severity Criticality Documentation Date Start Date Code Code System Note Provider Name and Address Organization Details Recorded Time 38829 Non-stero idal anti-infl ammatory agent (product) medicatio n Not available Not available Not available 04/12/2023 87920 005 SNOMED MIEK Santa filemon [facility] 14:30:24 Medications Name Sig Start Date Stop Date Status Note LastModified by Organization Details LastModified Time binaxnow cov kit home vel 05/14 completed Not Available Not Available Not Available celecoxib 200 mg capsule TAKE 1 CAPSULE BY MOUTH ONCE DAILY active Not Available Not Available No t Available cyclobenzap rine 10 mg tablet TAKE 1 TABLET BY MOUTH TWICE DAILY NEEDED FOR MUSCLE SPASM active Not Available Not Available No t Available amoxicillin 500 mg capsule TAKE FOUR CAPSULES BY MOUTH ONE HOUR BEFORE DENTAL APPOINTME NT 04/12 completed Not Available Not Available Not Available carvedilol 25 mg tablet TAKE 1 TABLET BY MOUTH TWICE DAILY WITH MEALS active Not Available Not Available No t Available paroxetine 10 mg tablet 08/22 completed Not Available Not Available Not Available carvedilol 12.5 mg tablet TAKE 1 TABLET BY MOUTH TWICE DAILY 08/28 completed Not Available Not Available Not Available albuterol sulfate 2.5 mg/3 mL (0.083 %) solution for nebulizatio n 05/05 completed Not Available Not Available Not Available trazodone 50 mg tablet 03/18 completed Not Available Not Available Not Available azithromyci n 250 mg tablet 05/08 completed Not Available Not Available Not Available ofloxacin 0.3 % eye drops 04/12 completed Not Available Not Available Not Available hydrocodone 5 mg-acetamin ophen 325 mg tablet TAKE 1 TABLET BY MOUTH EVERY 8 HOURS NEEDED 05/14 completed Not Available Not Available Not Available lisinopril 20 mg tablet TAKE 1 TABLET BY MOUTH ONCE DAILY 09/20 completed Not Available Not Available Not Available permethrin 5 % topical cream 05/05 completed Not Available Not Available Not Available hydrocodone 10 mg-acetamin ophen 325 mg tablet TAKE 1/2 (ONE-HALF ) TABLET BY MOUTH EVERY 8 HOURS NEEDED FOR PAIN 05/14 completed Not Available Not Available Not Available warfarin 4 mg tablet TAKE 1 TABLET BY MOUTH ONCE DAILY 09/20 completed Not Available Not Available Not Available ketorolac 0.5 % eye drops 04/12 completed Not Available Not Available Not Available levothyroxi ne 100 mcg tablet TAKE 1 TABLET BY MOUTH ONCE DAILY active Not Available Not Available No t Available alprazolam 0.5 mg tablet TAKE 1 TABLET BY MOUTH TWICE DAILY NEEDED FOR ANXIETY 08/28 completed Not Available Not Available Not Available alprazolam 0.25 mg tablet TAKE 1 TABLET BY MOUTH EVERY DAY AT BEDTIME NEEDED FOR ANXIETY active Not Available Not Available No t Available famciclovir 250 mg tablet active Not Available Not Available Not Available amitriptyli ne 25 mg tablet TAKE 1 TABLET BY MOUTH AT BEDTIME FOR VERTIGO 04/12 completed Not Available Not Available Not Available prednisolon e acetate 1 % eye drops,suspe nsion INSTILL 1 DROP INTO RIGHT EYE 4 TIMES DAILY active Not Available Not Available No t Available estradiol 1 mg tablet TAKE 1 TABLET BY MOUTH ONCE DAILY 03/18 completed Not Available Not Available Not Available dicyclomine 20 mg tablet 08/28 completed Not Available Not Available Not Available paroxetine 20 mg tablet TAKE 1 TABLET BY MOUTH ONCE DAILY 03/18 completed Not Available Not Available Not Available levothyroxi ne 125 mcg tablet TAKE 1 TABLET BY MOUTH ONCE DAILY 05/14 completed Not Available Not Available Not Available lisinopril 20 mg-hydrochl orothiazide 25 mg tablet TAKE 1 TABLET BY MOUTH ONCE DAILY 08/28 completed Not Available Not Available Not Available furosemide 20 mg tablet 08/28 completed Not Available Not Available Not Available warfarin 1 mg tablet TAKE 1 TABLET BY MOUTH DAILY 03/18 completed Not Available Not Available Not Available methylpredn isolone 4 mg tablets in a dose pack TAKE BY MOUTH DIRECTED ON INSIDE OF PACKAGE active Not Available Not Available No t Available fluticasone propionate 50 mcg/actuati on nasal spray,suspe nsion 08/28 completed Not Available Not Available Not Available Hibiclens 4 % topical liquid SHOWER WITH THE BODY WASH THE NIGHT BEFORE SURGERY AND MORNING OF THE SURGERY AT HOME BEFORE COMING IN FOR SURGERY. TAKE EXTRA TIME TO WASH 01/07 completed Not Available Not Available Not Available levothyroxi ne 112 mcg tablet TAKE 1 TABLET BY MOUTH ONCE DAILY 05/14 completed Not Available Not Available Not Available oxycodone 5 mg tablet TAKE 1 TABLET BY MOUTH EVERY 4 HOURS active Not Available Not Available No t Available hydroxyzine pamoate 25 mg capsule 05/05 completed Not Available Not Available Not Available escitalopra m 10 mg tablet TAKE 1 TABLET BY MOUTH ONCE DAILY active Not Available Not Available No t Available rosuvastati n 10 mg tablet TAKE 1 TABLET BY MOUTH ONCE DAILY 08/28 completed Not Available Not Available Not Available Klor-Con M20 mEq tablet,exte nded release 05/05 completed Not Available Not Available Not Available aspirin 2019 active Not Available Not Available Not Avai lable Livalo 2 mg tablet TAKE 1 TABLET BY MOUTH ONCE DAILY active Not Available Not Available No t Available Eliquis 2.5 mg tablet TAKE 1 TABLET BY MOUTH EVERY 12 HOURS active Not Available Not Available No t Available OxyContin 10 mg tablet,chele h resistant,e xtended release Take 1 tablet every 12 hours by oral route. 04/19 completed Not Available Not Available Not Available Entresto 49 mg-51 mg tablet TAKE 1 TABLET BY MOUTH TWICE DAILY active Not Available Not Available No t Available Entresto 24 mg-26 mg tablet TAKE 1 TABLET BY MOUTH TWICE DAILY 08/28 completed Not Available Not Available Not Available Narcan 4 mg/actuatio n nasal spray CALL 911. ADMINISTE R A SINGLE SPRAY INTRANASA LLY INTO ONE NOSTRIL UPON SIGNS OF OPIOID OVERDOSE. MAY REPEAT AFTER 3 MINUTES IF NO RESPONSE. 08/28 completed Not Available Not Available Not Available BinaxNOW COVID-19 Ag Self Test kit Use as Directed on the Package active Not Available Not Available No t Available Vitals Date Recorded Body height Provider Name an d Address Organization Details Last Updated DateTime 09/30/2022 167.64 cm Not Available [facility] 06:01:06 Date Recorded Body height Provider Name an d Address Organization Details Last Updated DateTime 04/12/2023 167.64 cm MIKE Santa [facility] 04/12/2023 14:35:55 Date Recorded Body mass index (BMI) Body weight Provider Name and Address Organization Details Last Updated DateTime 04/12/2023 29.4 kg/m2 29722.81 g MIKE Santa [facility] 04/12/2023 14:35:58 Date Recorded Body height Provider Name an d Address Organization Details Last Updated DateTime 05/14/2023 167.64 cm MIKE Santa [facility] 05/14/2023 09:44:11 Social History Question Answer Notes LastModified by Organizat ion Details LastModified Time Tobacco Smoking Status Former Smoker MIKE Santa [facility] 04/12/2023 14:31:59 What Is Your Level Of Alcohol Consumption? Occasional [email or web address] Information not available 04/12/2023 Sex: Unknown Functional Status None recorded. Mental Status None recorded. Family History Relationship Description Onset Age of this Age Resolved Age Notes LastModified by Organization Details LastModified Time Father Heart disease [email or web address] Not available 2022 14:30:39 Father Hypertensive disorder [email or web address] Not available 2022 14:31:06 Father Diabetes mellitus [email or web address] Not available 2022 14:31:36 Mother Family history of stroke [email or web address] Not available 2022 14:30:51 Brother Hypertensive disorder [email or web address] Not available 2022 14:31:06 Daughter Diabetes mellitus [email or web address] Not available 2022 14:31:36 Medical History Condition Response ARTHRITIS Y HEART DISEASE/HEART PROBLEMS Y ULCERS Y BLOOD CLOTS Y HYPERTENSION Y Gynecological HistoryNo gynecological history recorded. Obstetrics History GPAL:G 0 P 0 0 0 0 Past Encounters Encounter ID Performer Location Encounter Start Date Encounter Closed Date Diagnosis/Indication Diagnosis SNOMED-CT Code Diagnosis ICD10 Code Diagnosis Note [id number] [facility] [place] [address] [place] [address] 03/07/2021 00:00:00 03/07/2021 10:08:01 [id number] RUBEN Nickerson [facility] [place] [address] [place] [address] 04/12/2023 14:02:39 04/12/2023 16:24:39 Pain of right shoulder joint 3985861984 1039533 M25.511 Neck pain 63451762 M54.2 [id number] Constantine Gutierrez MD [facility] [place] [address] [place] [address] 05/14/2023 09:39:53 05/17/2023 11:40:15 Pain of right shoulder joint 8799566438 4493636 M25.511 Neck pain 37948509 M54.2 Health Concerns Section Related Observation LastModified by Organization Detai ls LastModified Time None Recorded Concern Status LastModified by Organization Details LastModified Time None Recorded Advance Directives Directive None Recorded Payers Encounter Date Sequence Insurance Name Policy Number Policy Velarde Covered Member ID Velarde Member ID Guarantor Name 04/12/2023 1 [facility] [place] [id number] Rodrigo Foster [id number] October Foster 05/14/2023 1 [facility] [id number] Rodrigo Foster [id number] October Foster Notes Date Note Type Note Provider Name and Address Organization Details Recorded Time 05/14/2023 text/html patient returns. She has been going to physical therapy for her right shoulder and her neck. She feels that physical therapy is helping. She still has a little bit of pain on the top of the shoulder. She complains of tingling in the superolateral aspect of her shoulder. She complains of pain that radiates down her arm. She has been taking 200 mg of Celebrex daily which was helpful with some of her pain that she states she has everywhere in her body. She tried a Medrol Dosepak which was somewhat helpful. The she complains of a constant pain in the ulnar forearm on the right and occasional tingling in the ulnar forearm and dorsal radial forearm and frequent tingling in the index finger and intense tingling in the pinky finger which is associated with pain. This is all the right side. She is also having a lot of posterior neck pain. She notes that her fingers get sore from heavy work. 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 She runs the [employer] on the prior and does a lot of lifting and heavy carrying. She states that the food truck business has consumed her life but she has invested so much she does not want to give it up but she does feel that this is likely the cause of all of her musculoskeletal symptoms currently. Her symptoms started in October and November. She is getting a coronary artery angiogram soon and having a cardiac workup with Dr. Noble. When asked which symptom is the worst she states that the tingling and pain in her hand and forearm are about equal to the pain in the top of the shoulder which is about equal to her neck pain. Constantine Gutierrez MD [address] [place] [address], [facility] [address], [place], [address], [place] [facility] [place] [employer] 05/15/2023 15:23:29 OBGyn Episode No OBEpisode recorded.
--- OUTSIDE RECORDS SUMMARY | 2024-09-01 06:58 | XMS_ITS | Encounter Summary ---
Author Organization [facility] Address [address] [place] [address]. [place], [place] [id number] [place] [address] Care Team Providers Care Lamp Stack Developer Name Role Phone Yosef Guadalupe MD Primary Care Provider [phone] Encounter Details Date Type Department Care Team (Late st Contact Info) Description 08/17/2019 Pre-Procedure Call 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 [address] [place], [place] [address] Tres Puente MD [address] [place] [address] Social History Tobacco Use Types Packs/Day Years Used Date Smoking Tobacco: Never Smokeless Tobacco: Never Alcohol Use Standard Drinks/Week Comments Yes 0 (1 standard drink = 0.6 oz pur e alcohol) socially Comments No Sex and Gender Information Value Date Recorded Sex Assigned at Not on file Legal Sex Female 6:15 PM CDT Gender Identity Not on file Sexual Orientation Not on file documented as of this encounter Functional Status * Question Answer Date of Assessment Author Status Do you have serious difficulty walking or climbing stairs? No 08/17/2019 9:53 AM Mony Briseno CRNA Ac tive * Question Answer Date of Assessment Author Status Do you have difficulty dressing or bathing? No 08/17/2019 9:53 AM Mony Briseno CRN A Active Because of a physical, mental, or emotional condition, do you have difficulty doing errands alone such as visiting a doctor's office or shopping? No 08/17/2019 9:53 AM Mony Briseno CRNA Act zach * RETIRED Are you deaf or do you have serious difficulty hearing Answer Date of Assessment Author Status No 08/17/2019 9:53 AM CHRISTMAS [employer] MANAGER Activ e * 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 Answer Date of Assessment Author Status No 08/17/2019 9:53 AM CHRI[employer] F[employer] MANAGER Acti ve * Do you have serious difficulty walking or climbing stairs? Answer Date of Assessment Author Status No 08/17/2019 9:53 AM Mony Briseno C RNA Active * Do you have difficulty dressing or bathing? Answer Date of Assessment Author Status No 08/17/2019 9:53 AM Mony Briseno C RNA Active * Because of a physical, mental, or emotional condition, do you have difficulty doing errands alone such as visiting a doctor's office or shopping? Answer Date of Assessment Author Status No 08/17/2019 9:53 AM Mony Briseno C RNA Active documented as of this encounter Mental Status * Question Answer Entry Date Author Status Because of a physical, mental, or emotional condition, do you have serious difficulty concentrating, remembering, or making decisions? No 08/17/2019 9:53 AM Mony Briseno CRN A Active * Because of a physical, mental, or emotional condition, do you have serious difficulty concentrating, remembering, or making decisions? Answer Entry Date Author Status No 08/17/2019 9:53 AM Mony Briseno C RNA Active documented in this encounter Plan of Treatment Not on file documented as of this encounter Visit Diagnoses Not on filedocumented in this encounter Additional Health Concerns Infection Onset Date Last Indicated Resolved Time COVID-19 Rule Out 08/01/2020 08/01/2020 08/05/2020 10:44 AM [employer] MA[employer]GER COVID-19 Confirmed 08/01/2020 08/01/2020 12:34 AM [employer]RI[employer] MANAGER documented as of this encounter Care Teams Lamp Stack Developer Relationship Specialty Start Date End Date Yosef Guadalupe MD [address] [place] [address] PCP - General INTERNAL MEDICINE 01/23/19 documented as of this encounter
--- OUTSIDE RECORDS SUMMARY | 2024-09-01 06:58 | XMS_ITS | Encounter Summary ---
Author Organization [facility] Address [address] [place] [address]. [place], [place] [address] [place] [address] Care Team Providers Care Plastic Injection Mold Maker Name Role Phone Yosef Guadalupe MD Primary Care Provider [phone] Encounter Details Date Type Department Care Team (Late st Contact Info) Description 08/17/2019 Hospital Orders Only [facility] It Project Manager [address] [place], [place] [address] Tres Puente MD [address] [place] [address] Social History Tobacco Use Types Packs/Day Years [...] office or shopping? No 08/17/2019 9:53 AM REPORT SPECIALIST Mony Garcia CRNA Act zach * RETIRED Are you deaf or do you have serious difficulty hearing Answer Date of Assessment Author Status No 08/17/2019 9:53 AM REPORT SPECIALIST Activ e * 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 Answer Date of Assessment Author Status No 08/17/2019 9:53 AM REPORT SPECIALIST Activ e * Do you have serious difficulty walking [...] Rule Out 08/01/2020 08/01/2020 08/05/2020 10:44 AM REPORT SPECIALIST COVID-19 Confirmed 08/01/2020 08/01/2020 12:34 AM REPORT SPECIALIST documented as of this encounter Care Teams Plastic Injection Mold Maker Relationship Specialty Start Date End Date Yosef Guadalupe MD [address] [place] [address] PCP - General INTERNAL MEDICINE 01/23/19 documented as of this encounter
== END 2024-09-01 06:53 | disposition home or self-care (01) ==
LOC: ANHIMG 06:55
PROVIDERS: PCP Internal Medicine; Visit Provider Internal Medicine
DX: R13.10 Dysphagia, unspecified (principal)
CPT/HCPCS: 74240

== ENCOUNTER 2024-09-14 12:30 | Outpatient (CLI) | payer BC, SELFPAY ==
--- NOTE | ~2024-09-14 | CT_ITS ---
EXAMINATION: CTA chest DATE: 09/14/2024 13:06 INDICATION: Other specified disorders of arteries and arterial side. TECHNIQUE: Computed tomographic angiography (CTA) of the chest was performed with 100 mL Omnipaque-35 0 intravenous contrast. Volume-rendered 3D-reconstructions of the aorta and large arteries were const ructed by the technologist on a separate workstation. Automated exposure control and iterative recons truction technique were employed. The dose-length product was 271 mGy-cm. COMPARISON: Chest CT dated 03/06/[address] abdomen and pelvis dated 10/01/2022 FINDINGS: Lungs are clear with no suspicious pulmonary nodules, pneumonia, pulmonary edema or pleural effusion. Heart size is normal. No pericardial effusion. Thoracic aorta is normal in caliber with no dissectio n. 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 No pathologically enlarged thoracic lymphadenopathy. IMPRESSION: 1. No acute cardiopulmonary disease with normal thoracic aorta. 2. 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 Reviewed, dictated and finalized at location A. MAKER
--- OUTSIDE RECORDS SUMMARY | 2024-09-14 12:35 | XMS_ITS | Referral Summary ---
Author Organization [facility] [address] [facility] [address] Address [address] [place] [address] Care Team Providers Care Forestry Conservation Worker Name Role Phone Yon Perez Primary Care Provider [phone] Encounters Date Type Department Care Team Description 08/17/[address] [facility] Medical Group Cardiology [address] [facility] [address] [place] [address] Simón Noble MD from Last 3 Months Allergies Active Allergy [...] 25 mg tabletIndications :NICM (nonischemic cardiomyopathy) (CMS/HCC) (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
--- OUTSIDE RECORDS SUMMARY | 2024-09-14 12:35 | XMS_ITS | Clinical Summary ---
Author Organization [facility] Address [facility] [place] [address] Care Team Providers Care Scheduling Representative Name Role Phone Yosef Guadalupe MD Primary Care Provider [phone] Allergies Active Allergy Reactions Criticality Noted Date [...] 04/21/2023 Hyperlipidemia LDL goal <70 09/08/2019 Old [place] (myocardial infarction) 09/08/2019 JACOB on CPAP 09/08/2019 NICM (nonischemic cardiomyopathy) ([facility] HHS/H CC) 08/20/2019 Left ventricular thrombus 08/20/2019 Acquired hypothyroidism 08/20/2019 Pulmonary emboli ([facility]) 08/17/2019 Disorder of thyroid gland 05/08/2019 Arthritis [...] 58 05/10/2024 2:00 PM CDT Temperature 35.8 C (96.5 F) 05/10/2024 11:29 AM CDT Respiratory Rate 17 05/10/2024 2:00 PM CDT [...] 04/02, 10/13/2020, Additional history exists COVID-19 Vaccine ( - season) 2024 11/13/2020, 10/16/2020 Influenza Adult (#1) [...] Comments LIPID PANEL Routine 07/20/2021 7:20 AM ANIMAL HOSPITAL CLERK Blood tests for routine general physical examination from Last 3 Months or Most Recently Relevant to Health Maintenance Results * (ABNORMAL) LIPID PANEL (07/20/2021 7:20 AM ANIMAL HOSPITAL CLERK) CHOLESTEROL 185 <200 MG/DL 07/20/2021 8:12 AM [facility] Comment: THE NATIONAL LIPID ASSOCIATION AND THE NATIONAL CHOLESTEROL EDUCATION PROGRAM (NCEP) HAVE SET THE FOLLOWING GUIDELINES FOR TOTAL CHOLESTEROL IN ADULTS AGES 18 AND UP. DESIRABLE: <200 BORDERLINE HIGH: 200-239 HIGH: > OR = 240 TRIGLYCERIDES 71 <150 MG/DL 07/20/2021 8:12 AM [facility] Comment: THE NATIONAL LIPID ASSOCIATION AND THE NATIONAL CHOLESTEROL EDUCATION PROGAM (NCEP) HAVE SET THE FOLLOWING GUIDELINES FOR TRIGLYCERIDES IN ADULTS AGES 18 AND UP. NORMAL: <150 BORDERLINE HIGH: 150 TO 199 HIGH: 200 TO 499 VERY HIGH: >499 HDL 62 >49 MG/DL 07/20/2021 8:12 AM [facility] Comment: THE NATIONAL LIPID ASSOCIATION AND THE NATIONAL CHOLESTEROL EDUCATION PROGAM (NCEP) HAVE SET THE FOLLOWING GUIDELINES FOR HDL CHOLESTEROL IN ADULTS AGES 18 AND UP. MALES: >39 FEMALES: >49 LDL (CALCULATED) 109(H) <100 MG/DL 07/20/20 8:12 AM [facility] Comment: THE NATIONAL LIPID ASSOCIATION AND THE NATIONAL CHOLESTEROL EDUCATION PROGAM (NCEP) HAVE SET THE FOLLOWING GUIDELINES FOR LDL CHOLESTEROL IN ADULTS AGES 18 AND UP. DESIRABLE: <100 ABOVE DESIRABLE: 100 TO 129 BORDERLINE HIGH: 130 TO 159 HIGH: 160 TO 189 VERY HIGH: >189 VLDL CALCULATION 14 MG/DL 07/20/20 8:12 AM [facility] Comment:REFERENCE RANGE NOT ESTABLISHED CHOL/HDL RATIO 3.0 07/20/2021 8:12 AM ANIMAL HOSPITAL CLERK [facility] Comment:REFERENCE RANGE NOT ESTABLISHED LDL/HDL 1.8 07/20/2021 8:12 AM ANIMAL HOSPITAL CLERK [facility] Comment:REFERENCE RANGE NOT ESTABLISHED NON HDL CHOLESTEROL 123 MG/DL 07/20/2021 8:12 AM ANIMAL HOSPITAL CLERK [facility] Comment:REFERENCE RANGE NOT ESTABLISHED 07/20/2021 7:20 AM ANIMAL HOSPITAL CLERK Lamine Reis PA-C LABORATORY Final Resul t [facility] [address] [place] [address], from Last 3 Months or Most Recently Relevant to Health Maintenance Insurance Advance Directives * Full Code (Latest Code Status on File) Date Activated Date Inactivated Comments 08/17/2019 4:42 AM 08/21/2019 2:58 PM Care Teams Scheduling Representative Relationship Specialty Start Date End Date Yosef Guadalupe MD [address] [place] [address] PCP - General INTERNAL MEDICINE 01/23/19
--- OUTSIDE RECORDS SUMMARY | 2024-09-14 12:35 | XMS_ITS | Encounter Summary ---
Author Organization [facility] Address [facility] [place] [address] Care Team Providers Care Right Of Way Maintenance Supervisor Name Role Phone Yosef Guadalupe MD Primary Care Provider [phone] Encounter Details Date Type Department Care Team (Late st Contact Info) Description 08/17/2019 Pre-Procedure Call [facility] Business Developer [address] [place] [address] Tres Puente MD [address] [place] [address] Social History Tobacco Use Types Packs/Day Years [...] Assessment Author Status No 08/17/2019 9:53 AM WELL PULLER HEAD Activ e * 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 Answer Date of Assessment Author Status No 08/17/2019 9:53 AM WELL PULLER HEAD Activ e * Do you have serious difficulty walking or climbing stairs? Answer Date of Assessment Author Status No 08/17/2019 9:53 AM WELL PULLER HEAD Mony Garcia C RNA Active * Do you have difficulty dressing or bathing? Answer Date of Assessment Author Status No 08/17/2019 9:53 AM WELL PULLER HEAD Mony Garcia C RNA Active * Because of a physical, mental, or emotional condition, do you have difficulty doing errands alone such as visiting a doctor's office or shopping? Answer Date of Assessment Author Status No 08/17/2019 9:53 AM WELL PULLER HEAD Mony Garcia C RNA Active documented as of this [...] Rule Out 08/01/2020 08/01/2020 08/05/2020 10:44 AM WELL PULLER HEAD COVID-19 Confirmed 08/01/2020 08/01/2020 12:34 AM WELL PULLER HEAD documented as of this encounter Care Teams Right Of Way Maintenance Supervisor Relationship Specialty Start Date End Date Yosef Guadalupe MD [address] [place] [address] PCP - General INTERNAL MEDICINE 01/23/19 documented as of this encounter
--- OUTSIDE RECORDS SUMMARY | 2024-09-14 12:35 | XMS_ITS | Clinical Summary ---
Author Organization [facility] [address] Address [address] [place] [address] Care Team Providers Care Pipeliner Name Role Phone Yon Perez DO Primary Care Provider [phone] Allergies Active Allergy Reactions Criticality Noted Date [...] 25 mg tabletIndications :NICM (nonischemic cardiomyopathy) (CMS/HCC) ([facility]) Take 0.5 tablets (12.5 mg total) by mouth 2 (two) times a day with meals 4 Active Active Problems Problem Noted Date Diagnosed Date Palpitations 05/06/2023 Atypical chest pain 05/06/2023 History of COVID-19 05/20/2021 JACOB on CPAP 09/08/2019 NICM (nonischemic cardiomyopathy) (CMS/HCC) 01/2020 Hyperlipidemia LDL goal <70 09/08/2019 Old [place] (myocardial infarction) 09/08/2019 Pain in extremity 01/27/2013 Hypertension 01/27/2013 Arthritis 01/27/2013 Resolved Problems Problem Noted Date Diagnosed Date Resolved Date Left ventricular thrombus 09/08/2019 Encounters Date Type Department Care Team Description 08/17/2024 Telephone [facility] Medical Group Cardiology [address] [place] [address] Simón Noble MD from Last 3 Months Surgical History Surgery Date Site/Laterality Comments HYSTERECTOMY Hysterectomy - (Added by TW Conv) BACK SURGERY Back Surgery - (Added by TW Conv) Medical History Medical History Date Comments Clot Hypertension 2019 novel coronavirus disease (COVID-19) 0 mild symptoms Left ventricular thrombus 09/08/2019 Family History Medical History Relation Name Comments Hypertension Brother Hypertension - (Added by TW Conv) Diabetes Daughter Diabetes Mellit us - (Added by TW Conv) Heart attack Father Heart disease Father Heart Disease - (Added by TW Conv) Heart disease Mother Heart Disease - (Added by TW Conv) Stroke Mother Relation Name Status Comments [...] on file Legal Sex 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
--- OUTSIDE RECORDS SUMMARY | 2024-09-14 12:35 | XMS_ITS | Data Portability ---
Author Organization [place] [facility] [employer], Main Office Address [address] [place] [address] Care Team Providers Care Manager Software Name Role Phone GIULIANO EDGE Primary Care Provider [phone] GIULIANO EDGE Referring Provider [phone] Assessment Encounter Date Assessment Date Assessment LastModified [...] patient more than half of this in [id number]-hhni conversation [facility] Not available 04/12/2023 15:36:55 05/14/2023 05/14/2023 impression: [...] more than half the time spent in [id number]-sg-[id number] care for Not available 05/15/2023 15:23:16 Plan of Treatment Reminders Order Date Submit Date Provider Last Modified By Organization Details Last Modified Time Details Appointments None recorded. Lab None recorded. Referral None recorded. Procedures None recorded. Surgeries None recorded. Imaging XR, cervical spine, 2 or 3 view 2022 023 [email or web address] [facility] [place], [facility] [address], [place], [address], 16:24:39 Medication Orders Medrol (Bigg) 4 mg tablets in a dose pack 2022 023 [email or web address] [facility] [address] [place], [address], 15:39:33 Patient TargetsNo targets recorded. Patient InstructionsNo instructions recorded. Reason for Referral None Reported. Results Created Date Observation Date Name Description Value Unit Range Abnormal Flag Note LastModifiedBy Organization Detail LastModifiedTime 03/07/20 21 XR, knee No observ ation record ed. [id number] [facility] [address], [place], [address], 09/30/2022 06:08:16 03/24/20 23 03/19/2023 XR, shoul ginger, 2 or more view No observ ation record ed. [email or web address] Not Available 03/03 10:48:47 04/12/20 XR, cervi sumeet spine , 2 or 3 view No observ ation record ed. [email or web address] [facility] [address], [place], [address], 04/12/2023 15:29:36 06/01/20 23 05/31/2023 MRI, cervi sumeet spine , w/o contr ast No observ ation record ed. [email or web address] [facility] [address], [place], [address], 06/01/2023 10:01:17 Result Notes None recorded. Problems Name Problem SNOMED Code Status Onset Date Resolution Date Notes Provider Name and Address Organization Details Recorded Time Disorder of thyroid gland 62710127 Active 2018 Not Available [facility] 3 06:01:58 Hypertensi ve disorder 78439042 Active 2018 Not Available [facility] 3 06:01:58 Pain of right shoulder joint 0681839750408 9100 Active 2022 MIKE Santa, [facility] 3 14:33:42 Neck pain 55559425 Active 2022 Belia Yu CMA null, [facility] 3 15:23:36 Spinal stenosis in cervical region 01780834 Active 2022 CARLOZ Preston, [facility] [employer] [facility] 16:17:18 Problem Notes None recorded. Procedures Surgical History Date Name Laterality Status Provider Name and Address Organization Details Recorded Time Back Surgery completed MIKE Santa [facility] [employer] [facility] 04/12/2023 14:32:05 Hysterectomy completed MIKE Santa [facility] 04/12/2023 14:32:11 Knee Replacement completed MIKE Ashby [facility] [employer] [facility] 04/12/2023 14:32:23 Imaging Results Imaging Date Name Status LastModified by Organiz ation Details LastModified Time 03/07/2021 XR, knee completed [id number] [facility] [address] [facility] [address], [place], [address], 09/30/2022 06:08:16 03/19/2023 XR, shoulder, 2 or more view completed [email or web address] Information not available 03/24/2023 10:48:47 04/12/2023 XR, cervical spine, 2 or 3 view completed [email or web address] [facility] [address] [facility] [address], [address], 04/12/2023 15:29:36 05/31/2023 MRI, cervical spine, w/o contrast completed [address], [place], [address], 06/01/2023 10:01:17 Procedure Notes None recorded. Medical Equipment None Reported. Allergies Allergen ID Allergen Name Allergen Category Reaction Reaction Severity Criticality Documentation Date Start Date Code Code System Note Provider Name and Address Organization Details Recorded Time 69508 Non-stero idal anti-infl ammatory agent (product) medicatio n Not available Not available Not available 04/12/2023 29299 005 SNOMED MIKE Santa filemon [facility] [employer] [facility] 14:30:24 Medications Name Sig Start Date Stop [...] Available [employer] 06:01:06 Date Recorded Body height Body mass index (BMI) Body weight Provider Name and Address Organization Details Last Updated DateTime 04/12/2023 167.64 cm 29.4 kg/m2 74668.81 g MIKE Santa [employer] 04/12/2023 14:35:58 Date Recorded Body height Provider Name an d Address Organization Details Last Updated DateTime 05/14/2023 167.64 cm MIKE Santa [employer] 05/14/2023 09:44:11 Social History Question Answer Notes LastModified by Organizat ion Details LastModified Time Tobacco Smoking Status Former Smoker MIKE Santa null [employer] [facility] [employer] 04/12/2023 14:31:59 What Is Your Level Of Alcohol Consumption? Occasional [email or web address] Information not available 04/12/2023 Sex: Unknown Functional Status None recorded. Mental Status None recorded. Family History Relationship Description Onset Age of this Age Resolved Age Notes LastModified by Organization Details LastModified Time Father Heart disease Not available 2022 14:30:39 Father Hypertensive disorder [email or web address] Not available 2022 14:31:06 Father Diabetes mellitus [email or web address] Not available 2022 14:31:36 Mother Family history of stroke [email or web address] Not available 2022 14:30:51 Brother Hypertensive disorder Not available 2022 14:31:06 Daughter Diabetes mellitus [email or web address] Not available 2022 14:31:36 Medical History Condition Response HEART DISEASE/HEART PROBLEMS Y ARTHRITIS Y ULCERS Y BLOOD CLOTS Y HYPERTENSION Y Gynecological HistoryNo gynecological history recorded. Obstetrics History GPAL:G 0 P 0 0 0 0 Past Encounters Encounter ID Performer Location Encounter Start Date Encounter Closed Date Diagnosis/Indication Diagnosis SNOMED-CT Code Diagnosis ICD10 Code Diagnosis Note [id number] [facility] [address] [place] [address] 03/07/2021 00:00:00 03/07/2021 10:08:01 [id number] RUBEN Nickerson [facility] [address] [place] [address] 04/12/2023 14:02:39 04/12/2023 16:24:39 Pain of right shoulder joint 8796249978 9974771 M25.511 Neck pain 79672438 M54.2 [id number] Constantine Gutierrez MD [facility] [address] [place] [address] 05/14/2023 09:39:53 05/17/2023 11:40:15 Pain of right shoulder joint 5423810338 2744555 M25.511 Neck pain 06577769 M54.2 Health Concerns Section Related Observation LastModified by Organization Detai ls LastModified Time None Recorded Concern Status LastModified by Organization Details LastModified Time None Recorded Advance Directives Directive None Recorded Payers Encounter Date Sequence Insurance Name Policy Number Policy Velarde Covered Member ID Velarde Member ID Guarantor Name 04/12/2023 1 [place] [id number] Rodrigo Foster [id number] October Cristian 05/14/2023 1 [facility]: ([place] [id number] Rodrigo Foster [id number] October Cristian Notes Date Note Type Note Provider Name [...] from heavy work. 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 Constantine Gutierrez MD [address] [place] [address], [facility] [address], [place], [address], [facility] [employer] 05/15/2023 15:23:29 OBGyn Episode No OBEpisode recorded.
--- OUTSIDE RECORDS SUMMARY | 2024-09-14 12:35 | XMS_ITS | Encounter Summary ---
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 Answer Date of Assessment Author Status No 08/17/2019 9:53 AM FENCE REPAIRMAN Activ e * Do you have serious difficulty walking or climbing stairs? Answer Date of Assessment Author Status No 08/17/2019 9:53 AM FENCE REPAIRMAN Mony Garcia C RNA Active * Do you have difficulty dressing or bathing? Answer Date of Assessment Author Status No 08/17/2019 9:53 AM FENCE REPAIRMAN Mony Garcia C RNA Active * Because of a physical, mental, or emotional condition, do you have difficulty doing errands alone such as visiting a doctor's office or shopping? Answer Date of Assessment Author Status No 08/17/2019 9:53 AM FENCE REPAIRMAN Mony Garcia C RNA Active documented as of this encounter Mental Status * Question Answer Entry Date Author Status Because of a physical, mental, or emotional condition, do you have serious difficulty concentrating, remembering, or making decisions? No 08/17/2019 9:53 AM FENCE REPAIRMAN Mony Garcia CRN A Active * Because of a [...] Rule Out 08/01/2020 08/01/2020 08/05/2020 10:44 AM FENCE REPAIRMAN COVID-19 Confirmed 08/01/2020 08/01/2020 12:34 AM FENCE REPAIRMAN documented as of this encounter Care Teams Manager Of Allied Health Services Relationship Specialty Start Date End Date Yosef Guadalupe MD [address] [place] [address] PCP - General INTERNAL MEDICINE 01/23/19 documented as of this encounter
[2024-09-14 13:01] LABS: Estimated Glomerular Filt Rate 50
== END 2024-09-14 12:31 | disposition home or self-care (01) ==
LOC: ANHIMG 12:33
PROVIDERS: PCP Internal Medicine; Visit Provider Internal Medicine
DX: I77.89 Other specified disorders of arteries and arterioles (principal)
CPT/HCPCS: 71275; Q9967

== ENCOUNTER 2024-09-28 02:49 | Day surgery (SDC) | payer BC, SELFPAY ==
[2024-09-25 08:21] VITALS: BMI 29.8
--- OUTSIDE RECORDS SUMMARY | 2024-09-28 02:52 | XMS_ITS | Clinical Summary ---
Author Organization [facility] Address [facility] [place] [address] Care Team Providers Care Colorman Name Role Phone Yosef Guadalupe MD Primary Care Provider [phone] Allergies Active Allergy Reactions Criticality Noted Date [...] 04/21/2023 Hyperlipidemia LDL goal <70 09/08/2019 Old [place] (myocardial infarction) 09/08/2019 JACOB on CPAP 09/08/2019 NICM (nonischemic cardiomyopathy) ([facility]) 08/20/2019 Left ventricular thrombus 08/20/2019 Acquired hypothyroidism 08/20/2019 Pulmonary emboli ([facility]) 08/17/2019 Disorder of thyroid gland 05/08/2019 Arthritis [...] Comments LIPID PANEL Routine 07/20/2021 7:20 AM INDUCTION FURNACE OPERATOR Blood tests for routine general physical examination from Last 3 Months or Most Recently Relevant to Health Maintenance Results * (ABNORMAL) LIPID PANEL (07/20/2021 7:20 AM INDUCTION FURNACE OPERATOR) CHOLESTEROL 185 <200 MG/DL 07/20/2021 8:12 AM [facility] Comment: THE NATIONAL LIPID ASSOCIATION AND THE NATIONAL CHOLESTEROL EDUCATION PROGRAM (NCEP) HAVE SET THE FOLLOWING GUIDELINES FOR TOTAL CHOLESTEROL IN ADULTS AGES 18 AND UP. DESIRABLE: <200 BORDERLINE HIGH: 200-239 HIGH: > OR = 240 TRIGLYCERIDES 71 <150 MG/DL 07/20/2021 8:12 AM [facility] Comment: THE NATIONAL LIPID ASSOCIATION AND THE NATIONAL CHOLESTEROL EDUCATION PROGAM (NCEP) HAVE SET THE FOLLOWING GUIDELINES FOR TRIGLYCERIDES IN ADULTS AGES 18 AND UP. NORMAL: <150 BORDERLINE HIGH: 150 TO 199 HIGH: 200 TO 499 VERY HIGH: >499 HDL 62 >49 MG/DL 07/20/2021 8:12 AM [facility] Comment: THE NATIONAL LIPID ASSOCIATION AND THE NATIONAL CHOLESTEROL EDUCATION PROGAM (NCEP) HAVE SET THE FOLLOWING GUIDELINES FOR HDL CHOLESTEROL IN ADULTS AGES 18 AND UP. MALES: >39 FEMALES: >49 LDL (CALCULATED) 109(H) <100 MG/DL 07/20/20 8:12 AM [facility] Comment: THE NATIONAL LIPID ASSOCIATION AND THE NATIONAL CHOLESTEROL EDUCATION PROGAM (NCEP) HAVE SET THE FOLLOWING GUIDELINES FOR LDL CHOLESTEROL IN ADULTS AGES 18 AND UP. DESIRABLE: <100 ABOVE DESIRABLE: 100 TO 129 BORDERLINE HIGH: 130 TO 159 HIGH: 160 TO 189 VERY HIGH: >189 VLDL CALCULATION 14 MG/DL 07/20/20 8:12 AM [facility] Comment:REFERENCE RANGE NOT ESTABLISHED CHOL/HDL RATIO 3.0 07/20/2021 8:12 AM INDUCTION FURNACE OPERATOR [facility] Comment:REFERENCE RANGE NOT ESTABLISHED LDL/HDL 1.8 07/20/2021 8:12 AM INDUCTION FURNACE OPERATOR [facility] Comment:REFERENCE RANGE NOT ESTABLISHED NON HDL CHOLESTEROL 123 MG/DL 07/20/2021 8:12 AM INDUCTION FURNACE OPERATOR [facility] Comment:REFERENCE RANGE NOT ESTABLISHED 07/20/2021 7:20 AM INDUCTION FURNACE OPERATOR Lamine Reis PA-C LABORATORY Final Resul t [facility] [address] [place] [address], from Last 3 Months or Most Recently Relevant to Health Maintenance Insurance Advance Directives * Full Code (Latest Code Status on File) Date Activated Date Inactivated Comments 08/17/2019 4:42 AM 08/21/2019 2:58 PM Care Teams Colorman Relationship Specialty Start Date End Date Yosef Guadalupe MD [address] [place] [address] PCP - General INTERNAL MEDICINE 01/23/19
--- OUTSIDE RECORDS SUMMARY | 2024-09-28 02:52 | XMS_ITS | Data Portability ---
Author Organization [place] - [facility] [employer], Main Office Address [address] [place] [address] Care Team Providers Care Acetylene Torch Operator Name Role Phone GIULIANO EDGE Primary Care Provider [phone] GIULIANO EDGE Referring Provider [phone] Assessment Encounter Date Assessment Date Assessment LastModified [...] patient more than half of this in drhq-[id number] conversation [facility] Not available 04/12/2023 15:36:55 05/14/2023 05/14/2023 impression: [...] more than half the time spent in maje-hn-hvbd care for Not available 05/15/2023 15:23:16 Plan of Treatment Reminders Order Date Submit Date Provider Last Modified By Organization Details Last Modified Time Details Appointments None recorded. Lab None recorded. Referral None recorded. Procedures None recorded. Surgeries None recorded. Imaging XR, cervical spine, 2 or 3 view 2022 023 [email or web address] [facility] [place], [facility] [address], [place], [address], 16:24:39 Medication Orders Medrol (Bigg) 4 mg tablets in a dose pack 2022 023 [email or web address] [facility] [address] [place], [address], 15:39:33 Patient TargetsNo targets recorded. Patient InstructionsNo instructions recorded. Reason for Referral None Reported. Results Created Date Observation Date Name Description Value Unit Range Abnormal Flag Note LastModifiedBy Organization Detail LastModifiedTime 03/07/20 21 XR, knee No observ ation record ed. [id number] [facility] [address], [place], [address], 09/30/2022 06:08:16 03/24/20 23 03/19/2023 XR, shoul ginger, 2 or more view No observ ation record ed. [email or web address] Not Available 03/03 10:48:47 04/12/20 XR, cervi sumeet spine , 2 or 3 view No observ ation record ed. [email or web address] [facility] [address], [place], [address], 04/12/2023 15:29:36 06/01/20 23 05/31/2023 MRI, cervi sumeet spine , w/o contr ast No observ ation record ed. [facility] [address], [place], [address], 06/01/2023 10:01:17 Result Notes None recorded. Problems Name Problem SNOMED Code Status Onset Date Resolution Date Notes Provider Name and Address Organization Details Recorded Time Disorder of thyroid gland 63983024 Active [address] [facility] 3 06:01:58 Hypertensi ve disorder 47351278 Active [address] [facility] 3 06:01:58 Pain of right shoulder joint 7774450076254 9100 Active 2022 MIKE Santa, [facility] 3 14:33:42 Neck pain 28860319 Active 2022 Belia Yu CMA null, [facility] 3 15:23:36 Spinal stenosis in cervical region 85954385 Active 2022 CARLOZ Preston, [facility] [employer] [facility] 16:17:18 Problem Notes None recorded. Procedures Surgical History Date Name Laterality Status Provider Name and Address Organization Details Recorded Time Back Surgery completed MIKE Santa [facility] [employer] [facility] 04/12/2023 14:32:05 Hysterectomy completed MIKE Santa [facility] 04/12/2023 14:32:11 Knee Replacement completed MIKE Ashby [facility] [employer] [facility] 04/12/2023 14:32:23 Imaging Results Imaging Date Name Status LastModified by Organiz ation Details LastModified Time 03/07/2021 XR, knee completed [id number] [facility] [place] [address] [facility] [address], [place], [address], 09/30/2022 06:08:16 03/19/2023 XR, shoulder, 2 or more view completed [email or web address] Information not available 03/24/2023 10:48:47 04/12/2023 XR, cervical spine, 2 or 3 view completed [email or web address] [facility] [place] [address] [facility] [address], [address], 04/12/2023 15:29:36 05/31/2023 MRI, cervical spine, w/o contrast completed [address], [place], [address], 06/01/2023 10:01:17 Procedure Notes None recorded. Medical Equipment None Reported. Allergies Allergen ID Allergen Name Allergen Category Reaction Reaction Severity Criticality Documentation Date Start Date Code Code System Note Provider Name and Address Organization Details Recorded Time 22650 Non-stero idal anti-infl ammatory agent (product) medicatio n Not available Not available Not available 04/12/2023 24134 005 SNOMED MIKE Santa filemon [facility] [employer] [facility] 14:30:24 Medications [...] d Address Organization Details Last Updated DateTime 03/07/2021 167.64 cm Not Available [employer] 06:01:06 Date Recorded Body height Body mass index (BMI) Body weight Provider Name and Address Organization Details Last Updated DateTime 04/12/2023 167.64 cm 29.4 kg/m2 84352.81 g MIKE Santa [employer] 04/12/2023 14:35:58 Date Recorded Body height Provider Name an d Address Organization Details Last Updated DateTime 05/14/2023 167.64 cm MIKE Santa [employer] 05/14/2023 09:44:11 Social History Question Answer Notes LastModified by Organizat ion Details LastModified Time Tobacco Smoking Status Former Smoker MIKE Santa null [employer] [facility] [employer] 04/12/2023 14:31:59 What Is Your Level Of Alcohol Consumption? Occasional Information not available 04/12/2023 Sex: Unknown Functional Status None recorded. Mental Status None recorded. Family History Relationship Description Onset Age of this Age Resolved Age Notes LastModified by Organization Details LastModified Time Father Heart disease [email or web address] Not available 2022 14:30:39 Father Hypertensive disorder [email or web address] Not available 2022 14:31:06 Father Diabetes mellitus [email or web address] Not available 2022 14:31:36 Mother Family history of stroke [email or web address] Not available 2022 14:30:51 Brother Hypertensive disorder [email or web address] Not available 2022 14:31:06 Daughter Diabetes mellitus [email or web address] Not available 2022 14:31:36 Medical History Condition Response ULCERS Y ARTHRITIS Y BLOOD CLOTS Y HEART DISEASE/HEART PROBLEMS Y HYPERTENSION Y Gynecological HistoryNo gynecological history recorded. Obstetrics History GPAL:G 0 P 0 0 0 0 Past Encounters Encounter ID Performer Location Encounter Start Date Encounter Closed Date Diagnosis/Indication Diagnosis SNOMED-CT Code Diagnosis ICD10 Code Diagnosis Note [id number] [facility] [place] [address] [place] [address] 03/07/2021 00:00:00 03/07/2021 10:08:01 [id number] RUBEN Nickerson [facility] [place] [address] [place] [address] 04/12/2023 14:02:39 04/12/2023 16:24:39 Pain of right shoulder joint 5663550138 9444580 M25.511 Neck pain 61554777 M54.2 [id number] Constantine Gutierrez MD [facility] [place] [address] [place] [address] 05/14/2023 09:39:53 05/17/2023 11:40:15 Pain of right shoulder joint 8730573662 6964490 M25.511 Neck pain 85508253 M54.2 Health Concerns Section Related Observation LastModified by Organization Detai ls LastModified Time None Recorded Concern Status LastModified by Organization Details LastModified Time None Recorded Advance Directives Directive None Recorded Payers Encounter Date Sequence Insurance Name Policy Number Policy Velarde Covered Member ID Velarde Member ID Guarantor Name 04/12/2023 1 [place] [id number] Rodrigo Foster [id number] October Cristian 05/14/2023 1 [facility]: ([place] [id number] Rodrigo Foster [id number] October Cristian Notes Date Note Type Note [...] from heavy work. 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 Constantine Gutierrez MD [address] [place] [address], [facility] [address], [place], [address], [facility] [employer] [place] 05/15/2023 15:23:29 OBGyn Episode No OBEpisode recorded.
--- OUTSIDE RECORDS SUMMARY | 2024-09-28 02:52 | XMS_ITS | Referral Summary ---
Author Organization [place] [address] Address [address] [address] Care Team Providers Care Unmanned Equipment Operator Name Role Phone Yon Perez Primary Care Provider Encounters Date Type Department Care Team Description 09/25/2024 Telephone [facility] [address] [place] [address] [address] [place] [address] Farida Zarate NP 09/14/2024 3:30 PM MECHANICAL DEVELOPMENT ENGINEER Office Visit [facility] [address] [place] [address] [address] [place] [address] Farida Zarate NP NICM (nonischemic cardiomyopathy) (CMS/HCC) (HCC) (Primary Dx); Bradycardia; Primary hypertension; Dysphagia, unspecified type 08/17/2024 Telephone [facility] [address] [place] [address] [address] [place] [address] Simón Noble MD from Last [...] 25 mg tabletIndications :NICM (nonischemic cardiomyopathy) (CMS/HCC) ([facility]) Take 0.5 tablets (12.5 mg total) by mouth 2 (two) times a day with meals 4 Active Active Problems Problem Noted Date Diagnosed Date Palpitations 05/06/2023 Atypical chest pain 05/06/2023 History of COVID-19 05/20/2021 JACOB on CPAP 09/08/2019 NICM (nonischemic cardiomyopathy) (CMS/HCC) 01/2020 Hyperlipidemia LDL goal <70 09/08/2019 Old [place] (myocardial infarction) 09/08/2019 Pain in extremity 01/27/2013 [...] on file Legal Sex Female 4:23 AM MECHANICAL DEVELOPMENT ENGINEER Gender Identity Not on file Sexual Orientation Not on file Last Filed Vital Signs Vital Sign Reading Time Taken Comments Blood Pressure 118/96 09/14/2024 3:25 PM MECHANICAL DEVELOPMENT ENGINEER Pulse 94 09/14/2024 3:25 PM MECHANICAL DEVELOPMENT ENGINEER Temperature - - Respiratory Rate 18 05/12/2022 8:03 AM CDT Oxygen Saturation 96% 09/14/2024 3:25 PM MECHANICAL DEVELOPMENT ENGINEER Inhaled Oxygen Concentration - - Weight 88 kg (194 lb) 09/14/2024 3:25 PM MECHANICAL DEVELOPMENT ENGINEER Height 167.6 cm (5' 6 ) 09/14/2024 3:25 PM MECHANICAL DEVELOPMENT ENGINEER Body Mass Index 31.31 09/14/2024 3:25 PM MECHANICAL DEVELOPMENT ENGINEER Plan of Treatment Not on file Insurance [employer] [place] [employer] [place] Care Teams Unmanned Equipment Operator Relationship Specialty Start Date End Date Yon Perez DO [address] [facility] [address] [place] [address] PCP - General Internal Medicine 05/25/24
--- OUTSIDE RECORDS SUMMARY | 2024-09-28 02:52 | XMS_ITS | Encounter Summary ---
Author Organization [facility] Address [facility] [place] [address] Care Team Providers Care Clinical Review Specialist Name Role Phone Yosef Guadalupe MD Primary Care Provider [phone] Encounter Details Date Type Department Care Team (Late st Contact Info) Description 08/17/2019 Hospital Orders Only [facility] [address] [place] [address] Tres Puente MD [address] [place] [address] Social History Tobacco Use Types Packs/Day Years [...] Assessment Author Status No 08/17/2019 9:53 AM CROSS TIE MAKER Activ e * 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 Answer Date of Assessment Author Status No 08/17/2019 9:53 AM CROSS TIE MAKER Activ e * Do you have serious difficulty walking or climbing stairs? Answer Date of Assessment Author Status No 08/17/2019 9:53 AM CROSS TIE MAKER Mony Garcia C RNA Active * Do you have difficulty dressing or bathing? Answer Date of Assessment Author Status No 08/17/2019 9:53 AM CROSS TIE MAKER Mony Garcia C RNA Active * Because of a physical, mental, or emotional condition, do you have difficulty doing errands alone such as visiting a doctor's office or shopping? Answer Date of Assessment Author Status No 08/17/2019 9:53 AM CROSS TIE MAKER Mony Garcia C RNA Active documented as of this encounter Mental Status * Question Answer Entry Date Author Status Because of a physical, mental, or emotional condition, do you have serious difficulty concentrating, remembering, or making decisions? No 08/17/2019 9:53 AM CROSS TIE MAKER Mony Garcia CRN A Active * Because [...] Rule Out 08/01/2020 08/01/2020 08/05/2020 10:44 AM CROSS TIE MAKER COVID-19 Confirmed 08/01/2020 08/01/2020 12:34 AM CROSS TIE MAKER documented as of this encounter Care Teams Clinical Review Specialist Relationship Specialty Start Date End Date Yosef Guadalupe MD [address] [place] [address] PCP - General INTERNAL MEDICINE 01/23/19 documented as of this encounter
--- OUTSIDE RECORDS SUMMARY | 2024-09-28 02:52 | XMS_ITS | Clinical Summary ---
Author Organization [facility] [address] Address [address] [place] [address] Care Team Providers Care Access Nurse Name Role Phone Yon Perez DO Primary Care Provider [phone] Allergies Active Allergy Reactions Criticality Noted Date [...] 25 mg tabletIndications :NICM (nonischemic cardiomyopathy) (CMS/HCC) (HCC) Take 0.5 tablets (12.5 mg total) by mouth 2 (two) times a day with meals 4 Active Active Problems Problem Noted Date Diagnosed Date Palpitations 05/06/2023 Atypical chest pain 05/06/2023 History of COVID-19 05/20/2021 JACOB on CPAP 09/08/2019 NICM (nonischemic cardiomyopathy) (CMS/HCC) 01/2020 Hyperlipidemia LDL goal <70 09/08/2019 Old [place] (myocardial infarction) 09/08/2019 Pain in extremity 01/27/2013 Hypertension 01/27/2013 Arthritis 01/27/2013 Resolved Problems Problem Noted Date Diagnosed Date Resolved Date Left ventricular thrombus 09/08/2019 Encounters Date Type Department Care Team Description 09/25/2024 Telephone [facility] Cardiology [address] [place] [address] Farida Zarate NP 09/14/2024 3:30 PM RECONDITIONING ASSOCIATE Office Visit [facility] Cardiology [address] [place] [address] Farida Zarate NP NICM (nonischemic cardiomyopathy) (CMS/HCC) ([facility]) (Primary Dx); Bradycardia; Primary hypertension; Dysphagia, unspecified type 08/17/2024 Telephone [facility] Cardiology [address] [place] [address] [address] Simón Noble MD from Last 3 Months Surgical History Surgery Date Site/Laterality Comments HYSTERECTOMY Hysterectomy - (Added by Conv) BACK SURGERY Back Surgery - (Added by Conv) Medical History Medical History Date Comments [...] on file Legal Sex Female 4:23 AM RECONDITIONING ASSOCIATE Gender Identity Not on file Sexual Orientation Not on file Obstetrics History Last Filed Vital Signs Vital Sign Reading Time Taken Comments Blood Pressure 118/96 09/14/2024 3:25 PM RECONDITIONING ASSOCIATE Pulse 94 09/14/2024 3:25 PM RECONDITIONING ASSOCIATE Temperature - - Respiratory Rate 18 05/12/2022 8:03 AM CDT Oxygen Saturation 96% 09/14/2024 3:25 PM RECONDITIONING ASSOCIATE Inhaled Oxygen Concentration - - Weight 88 kg (194 lb) 09/14/2024 3:25 PM RECONDITIONING ASSOCIATE Height 167.6 cm (5' 6 ) 09/14/2024 3:25 PM RECONDITIONING ASSOCIATE Body Mass Index 31.31 09/14/2024 3:25 PM RECONDITIONING ASSOCIATE Plan of Treatment Health Maintenance Due Date Last Done Comments Breast Cancer Screening-Mammogram 1962 Colon Cancer Screening-Colonoscopy 1962 Depression Screening 1962 Hepatitis C Screening 1962 DTaP/Tdap/Td Vaccine (1 - Tdap) 1973 Hepatitis B Screening 02/19/1980 Regular Well Visit/Exam 18-64 02/19/1980 Zoster Vaccine (1 of 2) 02/19/2012 Covid-19 Vaccine (2023-2 5 season) 2024 11/13/2020, 10/16/2020 Influenza Vaccine (#1) 2024 Pneumococcal vaccine <65 Aged Out No longer eligible based on patient's age to complete this topic Insurance [employer]verge ACCESS NE [employer]verge ACCESS NE Care Teams Access Nurse Relationship Specialty Start Date End Date Yon Perez DO [address] [facility] [address] [place] [address] PCP - General Internal Medicine 05/25/24
--- OUTSIDE RECORDS SUMMARY | 2024-09-28 02:52 | XMS_ITS | Encounter Summary ---
Author Organization [facility] Address [facility] [place] [address] Care Team Providers Care Lead Enterprise Architect Name Role Phone Yosef Guadalupe MD Primary Care Provider Encounter Details Date Type Department Care Team (Late st Contact Info) Description 08/17/2019 Pre-Procedure Call [facility] Knitting Machine Fixer Head [address] [place] [address] Tres Puente MD [address] [place] [address] Social History Tobacco Use Types Packs/Day Years [...] Assessment Author Status No 08/17/2019 9:53 AM VASCULAR SPECIALISTS Activ e * 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 Answer Date of Assessment Author Status No 08/17/2019 9:53 AM VASCULAR SPECIALISTS Activ e * Do you have serious difficulty walking or climbing stairs? Answer Date of Assessment Author Status No 08/17/2019 9:53 AM VASCULAR SPECIALISTS Mony Garcia C RNA Active * Do you have difficulty dressing or bathing? Answer Date of Assessment Author Status No 08/17/2019 9:53 AM VASCULAR SPECIALISTS Mony Garcia C RNA Active * Because of a physical, mental, or emotional condition, do you have difficulty doing errands alone such as visiting a doctor's office or shopping? Answer Date of Assessment Author Status No 08/17/2019 9:53 AM VASCULAR SPECIALISTS Mony Garcia C RNA Active documented as [...] Rule Out 08/01/2020 08/01/2020 08/05/2020 10:44 AM VASCULAR SPECIALISTS COVID-19 Confirmed 08/01/2020 08/01/2020 12:34 AM VASCULAR SPECIALISTS documented as of this encounter Care Teams Lead Enterprise Architect Relationship Specialty Start Date End Date Yosef Guadalupe MD [address] [place] [address] PCP - General INTERNAL MEDICINE 01/23/19 documented as of this encounter
[2024-09-28 09:18] VITALS: BP 148/97; PULSE 76; RESP 18; TEMP 36.4; O2SAT 99
[2024-09-28] MEDS: LACTATED RINGERS 1,000 ML 150 ML IV CONT (09:27)
--- NOTE | 2024-09-28 09:55 | PM.IMHP ---
H&P: HPI History of Present Illness Date/Time: 09/28/24 09:55 Chief Complaint: Dysphagia-screening colonoscopy Narrative: the patient started experiencing dysphagia to solids and liquids June 2024. Initially she was thought to have esophageal obstruction due to the aorta, however that was ruled out after a CT scan was obtained. The fact is that she feels dysphagia every day, and she has to modify her eating habits, i.e., cutting food in small pieces. There is no weight loss or family history of esophageal cancer. In addition, she is due for her 10 year screening colonoscopy. Review of Systems Review of Systems: All systems reviewed & are unremarkable except as noted in HPI and below PMFSH Past Medical History Medical History (Updated 09/28/24 @ 09:57 by Efrain Cadena MD) JACOB (obstructive sleep apnea) Pneumonia of right lower lobe due to infectious organism Hypersomnia Essential (primary) hypertension Anemia History of ST elevation myocardial infarction (STEMI) 08/2019 - blood clot in L ventricle following R TKA, unknown reason, treated with warfarin, no other stent intervention required. Heart has made full recovery. Wears hearing aid in both ears Vertigo Sharron-menopausal Tinnitus Hypothyroidism Osteoarthritis JACOB (obstructive sleep apnea) The patient had gotten a different mask she had a nasal pillow and then got a mask but has not tried the new mass Hypertension Surgical History Surgical History History of arthroplasty of left knee Status post total right knee replacement Cataract extraction status Bilateral H/O Spinal surgery History of hysterectomy Family History Family History (Updated 08/01/24 @ 08:20 by MIKE De Jesus) Father Acute myocardial infarction Heart disease Mother Thyroid activity decreased Cerebrovascular accident Sibling Hypertension Parkinson's disease Diabetes mellitus Social History Social History (Updated 08/01/24 @ 08:20 by MIKE De Jesus) Smoking packs per day: 0.5 Smoking cigarettes per day: 10.0 Years smoked: 10 Smoking pack-years: 5.00 Smoking status: Former smoker Tobacco type: cigarettes Second hand tobacco smoke exposure: No Smoking end date: 08/02/07 Alcohol intake: current Alcohol use details: occasional Substance use: never Substance use type: does not use Do You Feel Safe in your Home?: Yes Lack of Transportation: No Lack of Food: Never True Current Housing: I Have Housing Concerned About Future Housing: No Difficulty Paying Gas/Electric Bills: No Difficulty Paying for Meds: No Currently Unemployed: No Education: Trade/Vocational Certificate Difficulty w/ Childcare or Family Care: No Living arrangements: with family Occupation/Education: occupation 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 Gender identity (if verbalized by the patient): Female Sexual Orientation (if Verbalized by the Patient): Straight or Heterosexual Spiritual care concerns: No Meds Home Medications and Allergies Home Medications ?Medication ?Instructions ?Recorded ?Confirmed ?Type carvedilol 25 mg tablet 25 mg PO Q12H 11/13/19 09/28/24 History aspirin 81 mg tablet,delayed 81 mg PO DAILY 02/14/20 09/28/24 History release (Adult Low Dose Aspirin) sacubitril 49 mg-valsartan 51 mg 1 tablet PO BID 02/14/20 09/28/24 History tablet (Entresto) pitavastatin calcium 2 mg tablet 2 mg PO DAILY #90 tabs 11/16/23 09/28/24 Rx escitalopram oxalate 10 mg tablet 10 mg PO DAILY #90 tabs 03/31/24 09/28/24 Rx levothyroxine 112 mcg tablet 112 mcg PO DAILY #90 tabs 04/27/24 09/28/24 Rx celecoxib 200 mg capsule 200 mg PO BID #180 caps 06/26/24 09/28/24 Rx Allergies Allergy/AdvReac Type Severity Reaction Status Date / Time No Known Allergies Allergy Verified 09/28/24 09:16 Vital Signs Vital Signs - 24 hr 09/28/24 09:18 Temperature 97.5 F L Pulse Rate 76 Respiratory Rate 18 Blood Pressure 148/97 H Pulse Oximetry 99 Oxygen Delivery Room Air Exam Const: General: cooperative and healthy appearing Resp: Effort & Inspection: normal respiratory effort and able to speak in complete sentences Auscultation: clear to auscultation bilaterally Cardio: Rate: regular rate Rhythm: regular rhythm GI: Inspection: normal to inspection GI Palp: No No hepatosplenomegaly present Auscultation: normal bowel sounds Rectal Exam: deferred Skin: General skin exam: normal color Psych: Appearance: grossly normal Mental Status: mental status grossly normal Assessment and Plan Assessment and plan (1) Dysphagia: Qualifiers: Dysphagia type: esophageal phase Qualified Code(s): R13.19 - Other dysphagia Code(s): R13.10 - Dysphagia, unspecified Status: Acute Assessment and Plan: The patient is deemed a good candidate for the procedures. Consent signed. Will proceed. (2) Encounter for screening colonoscopy: Code(s): Z12.11 - Encounter for screening for malignant neoplasm of colon Status: Acute
--- NOTE | 2024-09-28 10:14 | WPDANESEPPF ---
Anes - Initial Pre Proc Eval Procedure: Operation Date: 09/28/24 09:30 Proposed Procedures p Esophagogastroduodenoscopy&Screen Colon - Efrain Cadena MD Date/Time: 09/28/24 10:14 Surgeon: Efrain Cadena MD Pre Op Diagnosis: Screening colon,retum, dysphagia Patient Data Age: 64 Gender: F Height: 1.7 m Weight: 84.8 kg Last Vital Signs Temp 97.5 F L 09/28/24 09:18 Pulse 76 09/28/24 09:18 Resp 18 09/28/24 09:18 BP 148/97 H 09/28/24 09:18 Pulse Ox 99 09/28/24 09:18 O2 Del Method Room Air 09/28/24 09:18 Allergies Allergy/AdvReac Type Severity Reaction Status Date / Time No Known Allergies Allergy Verified 09/28/24 09:16 Home Medications ?Medication ?Instructions ?Recorded ?Confirmed ?Type carvedilol 25 mg tablet 25 mg PO Q12H 11/13/19 09/28/24 History aspirin 81 mg tablet,delayed 81 mg PO DAILY 02/14/20 09/28/24 History release (Adult Low Dose Aspirin) sacubitril 49 mg-valsartan 51 mg 1 tablet PO BID 02/14/20 09/28/24 History tablet (Entresto) pitavastatin calcium 2 mg tablet 2 mg PO DAILY #90 tabs 11/16/23 09/28/24 Rx escitalopram oxalate 10 mg tablet 10 mg PO DAILY #90 tabs 03/31/24 09/28/24 Rx levothyroxine 112 mcg tablet 112 mcg PO DAILY #90 tabs 04/27/24 09/28/24 Rx celecoxib 200 mg capsule 200 mg PO BID #180 caps 06/26/24 09/28/24 Rx Patient hx anesthesia problems: none Family hx anesthesia problems: none Results Review: All pre-operative results and documents have been reviewed as part of the pre-operative evaluation. [facility] Past Medical History Medical History JACOB (obstructive sleep apnea) Pneumonia of right lower lobe due to infectious organism Hypersomnia Essential (primary) hypertension Anemia History of ST elevation myocardial infarction (STEMI) 08/2019 - blood clot in L ventricle following R TKA, unknown reason, treated with warfarin, no other stent intervention required. Heart has made full recovery. Wears hearing aid in both ears Vertigo Sharron-menopausal Tinnitus Hypothyroidism Osteoarthritis JACOB (obstructive sleep apnea) The patient had gotten a different mask she had a nasal pillow and then got a mask but has not tried the new mass Hypertension Surgical History Surgical History History of arthroplasty of left knee Status post total right knee replacement Cataract extraction status Bilateral H/O Spinal surgery History of hysterectomy Family History Family History Father Acute myocardial infarction Heart disease Mother Thyroid activity decreased Cerebrovascular accident Sibling Hypertension Parkinson's disease Diabetes mellitus Social History Social History Smoking packs per day: 0.5 Smoking cigarettes per day: 10.0 Years smoked: 10 Smoking pack-years: 5.00 Smoking status: Former smoker Tobacco type: cigarettes Second hand tobacco smoke exposure: No Smoking end date: 08/02/07 Alcohol intake: current Alcohol use details: occasional Substance use: never Substance use type: does not use Do You Feel Safe in your Home?: Yes Lack of Transportation: No Lack of Food: Never True Current Housing: I Have Housing Concerned About Future Housing: No Difficulty Paying Gas/Electric Bills: No Difficulty Paying for Meds: No Currently Unemployed: No Education: Trade/Vocational Certificate Difficulty w/ Childcare or Family Care: No Living arrangements: with family Occupation/Education: occupation 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 Gender identity (if verbalized by the patient): Female Sexual Orientation (if Verbalized by the Patient): Straight or Heterosexual Spiritual care concerns: No Anes - Eval Final PreProcedure Day of Procedure 09/28/24 10:14 Patient weight: obese Lungs: normal air movement Airway: Mallampati scale class II Neurological: alert and oriented Last oral intake: >/= 8 hours ASA classification: III Emergent: no Anesthetic plan: proceed Anesthesia type and monitoring: general GIVS and standard monitoring Results Review: All pre-operative results and documents have been reviewed as part of the pre-operative evaluation. Med hx reviewed, pt had blood clot L vent post ortho sx in the past, now w clearance to do GI procedures today. Informed Consent: The patient's anesthetic plan and its attendant risks and benefits were discussed with the patient/family/POA. Questions were solicited and answers provided to the satisfaction of the patient/family/POA.
--- NOTE | 2024-09-28 10:40 | SUR.OPER ---
EGD end 1033 COLONOSCOPY START 104
[2024-09-28 10:59] VITALS: BP 120/79; PULSE 82; RESP 24; O2SAT 99
[2024-09-28 11:09] VITALS: BP 127/83; PULSE 75; RESP 20; O2SAT 100
[2024-09-28 11:19] VITALS: BP 160/90; PULSE 76; RESP 202; O2SAT 100
== END 2024-09-28 11:35 | disposition home or self-care (01) ==
PROVIDERS: PCP Internal Medicine; Visit Provider Internal Medicine Gastroenterology
PROC: 0DJ08ZZ Inspection of Upper Intestinal Tract, Via Natural or Artificial Opening Endoscopic (ICD-10-PCS; CPT 45378; principal; 2024-09-28 09:30)
DX: Z12.11 Encounter for screening for malignant neoplasm of colon (principal); K63.5 Polyp of colon; K22.2 Esophageal obstruction; K29.50 Unspecified chronic gastritis without bleeding; K21.00 Gastro-esophageal reflux disease with esophagitis, without bleeding; K44.9 Diaphragmatic hernia without obstruction or gangrene; K29.30 Chronic superficial gastritis without bleeding; Z87.891 Personal history of nicotine dependence; E66.9 Obesity, unspecified; Z68.29 Body mass index [BMI] 29.0-29.9, adult
CPT/HCPCS: 45385; 43249; 88305; C1726; J2003; J2704; J7120

== ENCOUNTER 2025-01-04 09:51 | Outpatient (CLI) | payer BC, SELFPAY ==
--- OUTSIDE RECORDS SUMMARY | 2025-01-04 10:45 | XMS_ITS | Data Portability ---
Author Organization [place] - [facility] [employer], Main Office Address [address] [place] [address] Care Team Providers Care Echocardiographer Name Role Phone GIULIANO EDGE Primary Care Provider [phone] GIULIANO EDGE Referring Provider [phone] Assessment Encounter Date Assessment Date Assessment LastModified [...] patient more than half of this in nrbb-[id number] conversation [facility] Not available 04/12/2023 15:36:55 05/14/2023 05/14/2023 impression: [...] more than half the time spent in [facility]zz[facility] care for Not available 05/15/2023 15:23:16 Plan of Treatment Reminders Order Date Submit Date Provider Last Modified By Organization Details Last Modified Time Details Appointments None recorded. Lab None recorded. Referral None recorded. Procedures None recorded. Surgeries None recorded. Imaging XR, cervical spine, 2 or 3 view 2022 023 [email or web address] [facility] [place], [employer], [place], [address], 16:24:39 Medication Orders Medrol (Bigg) 4 mg tablets in a dose pack 2022 023 [email or web address] [facility] [address] [place], [address], 15:39:33 Patient TargetsNo targets recorded. Patient InstructionsNo instructions recorded. Reason for Referral None Reported. Results Created Date Observation Date Name Description Value Unit Range Abnormal Flag Note LastModifiedBy Organization Detail LastModifiedTime 03/07/20 21 XR, knee No observ ation record ed. [id number] [facility] [address], [place], [address], 09/30/2022 06:08:16 03/24/20 23 03/19/2023 XR, shoul ginger, 2 or more view No observ ation record ed. [email or web address] Not Available 03/03 10:48:47 04/12/20 XR, cervi sumeet spine , 2 or 3 view No observ ation record ed. [email or web address] [facility] [address], [place], [address], 04/12/2023 15:29:36 06/01/20 23 05/31/2023 MRI, cervi sumeet spine , w/o contr ast No observ ation record ed. [facility] [address], [place], [address], 06/01/2023 10:01:17 Result Notes None recorded. Problems Name Problem SNOMED Code Status Onset Date Resolution Date Notes Provider Name and Address Organization Details Recorded Time Disorder of thyroid gland 82362707 Active 2018 Not Available [facility] 3 06:01:58 Hypertensi ve disorder 03773461 Active 2018 Not Available [facility] 3 06:01:58 Pain of right shoulder joint 2602201778400 9100 Active 2022 MIKE Santa, [facility] 3 14:33:42 Neck pain 14892010 Active 2022 Belia Yu CMA null, [facility] 3 15:23:36 Spinal stenosis in cervical region 60047500 Active 2022 CARLOZ [place], [place] [facility] 16:17:18 Problem Notes None recorded. Procedures Surgical History Date Name Laterality Status Provider Name and Address Organization Details Recorded Time Back Surgery completed MIKE Santa [facility] 04/12/2023 14:32:05 Hysterectomy completed MIKE Santa [facility] 04/12/2023 14:32:11 Knee Replacement completed MIKE Ashby [facility] 04/12/2023 14:32:23 Imaging Results None recorded. Procedure Notes None recorded. Medical Equipment None Reported. Allergies Allergen ID Allergen Name Allergen Category Reaction Reaction Severity Criticality Documentation Date Start Date Code Code System Note Provider Name and Address Organization Details Recorded Time 17347 Non-stero idal anti-infl ammatory agent (product) medicatio n Not available Not available Not available 04/12/2023 33562 005 SNOMED MIKE Santa [facility] 14:30:24 Medications Name Sig Start Date Stop [...] Updated DateTime 03/07/2021 167.64 cm Not Available [facility] 06:01:06 Date Recorded Body height Body mass index (BMI) Body weight Provider Name and Address Organization Details Last Updated DateTime 04/12/2023 167.64 cm 29.4 kg/m2 45733.81 g MIKE [facility] [employer] 04/12/2023 14:35:58 Date Recorded Body height Provider Name an d Address Organization Details Last Updated DateTime 05/14/2023 167.64 cm MIKE [facility] [employer] 05/14/2023 09:44:11 Social History None recorded. Functional Status Question Answer Note LastModified by Organizat ion Details LastModified Time What is your level of alcohol consumption? Occasional Information not available 04/12/2023 Mental Status None recorded. Family History Relationship Description Onset Age of this Age Resolved Age Notes LastModified by Organization Details LastModified Time Father Heart disease [email or web address] Not available 2022 14:30:39 Father Hypertensive disorder [email or web address] Not available 2022 14:31:06 Father Diabetes mellitus [email or web address] Not available 2022 14:31:36 Mother Family history of stroke [email or web address] Not available 2022 14:30:51 Brother Hypertensive disorder Not available 2022 14:31:06 Daughter Diabetes mellitus [email or web address] Not available 2022 14:31:36 Medical History Condition Response HEART DISEASE/HEART PROBLEMS Y ARTHRITIS Y ULCERS Y BLOOD CLOTS Y HYPERTENSION Y Gynecological HistoryNo gynecological history recorded. Obstetrics History GPAL:G 0 P 0 0 0 0 Past Encounters Encounter ID Performer Location Encounter Start Date Encounter Closed Date Diagnosis/Indication Diagnosis SNOMED-CT Code Diagnosis ICD10 Code Diagnosis Note [id number] MD LOLA [facility] [place] [address] [place] [address] 03/07/2021 00:00:00 03/07/2021 10:08:01 [id number] MD LOLA [facility] [place] [address] [place] [id number] 04/12/2023 14:02:39 04/12/2023 16:24:39 Pain of right shoulder joint 4999903693 2086526 M25.511 Neck pain 76285186 M54.2 [id number] Constantine Gutierrez MD [facility] [address] [place] [address] 05/14/2023 09:39:53 05/17/2023 11:40:15 Pain of right shoulder joint 1196163466 9840026 M25.511 Neck pain 04305822 M54.2 Health Concerns Section Related Observation LastModified by Organization Detai ls LastModified Time None Recorded Concern Status LastModified by Organization Details LastModified Time None Recorded Advance Directives Directive None Recorded Payers Encounter Date Sequence Insurance Name Policy Number Policy Velarde Covered Member ID Velarde Member ID Guarantor Name 04/12/2023 1 [place] [id number] Rodrigo Foster [id number] October Cristian 05/14/2023 1 [place] [id number] Rodrigo Foster [id number] October Cristian Notes Date Note Type Note [...] September of this year. 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 Constantine Gutierrez MD [address] [facility] [facility] [address], [place], [address], [place] [facility] [employer] 05/15/2023 15:23:29 OBGyn Episode No OBEpisode recorded.
--- OUTSIDE RECORDS SUMMARY | 2025-01-04 10:45 | XMS_ITS | Clinical Summary ---
Author Organization [facility] [address] Address [address] [place] [address] Care Team Providers Care Beer Brewer Name Role Phone Yon Perez Primary Care Provider [phone] Allergies Active Allergy Reactions Criticality Noted Date Comments Nsaids (Non-Steroidal Anti-Inflammatory Drug) Other (See comments) Low 05/20/2021 H/o ulcers Medications aspirin 81 mg enteric coated tabletIndications :NICM (nonischemic cardiomyopathy) (HCC),JACOB on CPAP,Hyperlipidem ia LDL goal <70,Left [...] mg total) by mouth daily 3 Active levothyroxine (SYNTHROID) 112 mcg tablet Take 1 tablet (112 mcg total) by mouth daily 4 Active celecoxib (CeleBREX) 100 mg capsule Take 1 capsule (100 mg total) by mouth 2 (two) times a day Active carvediloL (COREG) 25 mg tabletIndications :NICM (nonischemic cardiomyopathy) (HCC) Take 0.5 tablets (12.5 mg total) by mouth 2 (two) times a day with meals 4 Active Entresto 49-51 mg tablet Take 1 tablet by mouth twice daily 180 tablet 5 Active Active Problems Problem Noted Date Diagnosed Date Palpitations 05/06/2023 Atypical chest pain 05/06/2023 History of COVID-19 05/20/2021 JACOB on CPAP 09/08/2019 NICM (nonischemic cardiomyopathy) 09/08/2019 Hyperlipidemia LDL goal <70 09/08/2019 Old [place] (myocardial infarction) 09/08/2019 Pain in extremity 01/27/2013 Hypertension 01/27/2013 Arthritis 01/27/2013 Resolved Problems Problem Noted Date Diagnosed Date Resolved Date Left ventricular thrombus 09/08/2019 Surgical History Surgery Date Site/Laterality Comments HYSTERECTOMY Hysterectomy - (Added by [facility] Conv) BACK SURGERY Back Surgery - (Added by [employer] Conv) Medical History Medical History Date Comments Clot Hypertension 2018 novel coronavirus disease (COVID-19) 0 mild symptoms Left ventricular thrombus 09/08/2019 Family History Medical History Relation Name Comments Hypertension Brother Hypertension - (Added by [facility] Conv) Diabetes Daughter Diabetes Mellit us - (Added by [employer] Conv) Heart attack Father Heart disease Father Heart Disease - (Added by [employer] Conv) Heart disease Mother Heart Disease - (Added by [employer] Conv) Stroke Mother Relation Name Status Comments [...] on file Legal Sex Female 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 Gender Identity Not on file Sexual Orientation Not on file Obstetrics History Last Filed Vital Signs Vital Sign Reading Time Taken Comments Blood Pressure 118/96 09/14/2024 3:25 PM SYNTHETIC GEM PRESS OPERATOR Pulse 94 09/14/2024 3:25 PM SYNTHETIC GEM PRESS OPERATOR Temperature - - Respiratory Rate 18 05/12/2022 8:03 AM CDT Oxygen Saturation 96% 09/14/2024 3:25 PM SYNTHETIC GEM PRESS OPERATOR Inhaled Oxygen Concentration - - Weight 88 kg (194 lb) 09/14/2024 3:25 PM SYNTHETIC GEM PRESS OPERATOR Height 167.6 cm (5' 6) 09/14/2024 3:25 PM SYNTHETIC GEM PRESS OPERATOR Body Mass Index 31.31 09/14/2024 3:25 PM SYNTHETIC GEM PRESS OPERATOR Plan of Treatment Health Maintenance Due Date Last Done Comments Breast Cancer Screening-Mammogram 1960 Colon Cancer Screening-Colonoscopy 1960 Depression Screening 1960 Hepatitis C Screening 1960 DTaP/Tdap/Td Vaccine (1 - Tdap) 1973 Hepatitis B Screening 02/19/1980 Regular Well Visit/Exam 18-64 02/19/1980 Zoster Vaccine (1 of 2) 02/19/2012 Covid-19 Vaccine (3 - 2023-2 5 season) 2024 11/13/2020, 10/16/2020 Influenza Vaccine (Season Ended) 2025 Pneumococcal vaccine <65 Aged Out No longer eligible based on patient's age to complete this topic Insurance [employer] [facility] * Guarantor: Lynn Adorno Account Type Relation to Patient Date of Phone Billing Address Personal/Family Self 1960 [address] [place] [address] [facility] Care Teams Beer Brewer Relationship Specialty Start Date End Date Yon Perez DO [address] [facility] [address] [place], [place] [id number] PCP - General Internal Medicine 05/25/24
--- OUTSIDE RECORDS SUMMARY | 2025-01-04 10:45 | XMS_ITS | Referral Summary ---
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 Gender Identity Not on file Sexual Orientation Not on file Last Filed Vital Signs Vital Sign Reading Time Taken Comments Blood Pressure 118/96 09/14/2024 3:25 PM SET KEY DRIVER Pulse 94 09/14/2024 3:25 PM SET KEY DRIVER Temperature - - Respiratory Rate 18 05/12/2022 8:03 AM CDT Oxygen Saturation 96% 09/14/2024 3:25 PM SET KEY DRIVER Inhaled Oxygen Concentration - - Weight 88 kg (194 lb) 09/14/2024 3:25 PM SET KEY DRIVER Height 167.6 cm (5' 6) 09/14/2024 3:25 PM SET KEY DRIVER Body Mass Index 31.31 09/14/2024 3:25 PM SET KEY DRIVER Plan of Treatment Not on file Insurance [employer] [place] [employer] [place] Care Teams Expeditionary Fighting Vehicle Crewman Relationship Specialty Start Date End Date Yon Perez DO [address] [facility] [address] [place] [address] PCP - General Internal Medicine 05/25/24
[2025-01-04 12:42] LABS: Toxigenic C. Diff NEGATIVE (NEGATIVE)
== END 2025-01-04 09:52 | disposition home or self-care (01) ==
PROVIDERS: PCP Internal Medicine; Visit Provider Internal Medicine Gastroenterology
DX: R19.7 Diarrhea, unspecified (principal)
CPT/HCPCS: 87493

== ENCOUNTER 2025-01-30 08:45 | Outpatient (CLI) | payer BC, SELFPAY ==
--- OUTSIDE RECORDS SUMMARY | 2025-01-30 08:49 | XMS_ITS | Clinical Summary ---
Author Organization [facility] [address] Address [address] [place] [address] Care Team Providers Care Shoemaking Cutter Name Role Phone Yon Perez Primary Care Provider Allergies Active Allergy Reactions Criticality Noted Date [...] 09/08/2019 Hyperlipidemia LDL goal <70 09/08/2019 Old [place] (myocardial infarction) 09/08/2019 Pain in extremity 01/27/2013 Hypertension 01/27/2013 Arthritis 01/27/2013 Resolved Problems Problem Noted Date Diagnosed Date Resolved Date Left ventricular thrombus 09/08/2019 Surgical History Surgery Date Site/Laterality Comments HYSTERECTOMY Hysterectomy - (Added by TW Conv) BACK SURGERY Back Surgery - (Added by [employer] Conv) Medical History Medical History Date Comments Clot Hypertension 2018 novel coronavirus disease (COVID-19) 0 mild symptoms Left ventricular thrombus 09/08/2019 Family History Medical History Relation Name Comments Hypertension Brother Hypertension - (Added by TW Conv) Diabetes Daughter Diabetes Mellit us - (Added by [employer] Conv) Heart attack Father Heart disease Father Heart Disease - (Added by [employer] Conv) Heart disease Mother Heart Disease - (Added by [employer] Conv) Stroke Mother Relation Name Status Comments [...] on file Legal Sex Female 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 Gender Identity Not on file Sexual Orientation Not on file Obstetrics History Last Filed Vital Signs Vital Sign Reading Time Taken Comments Blood Pressure 118/96 09/14/2024 3:25 PM VICE PRESIDENT TALENT MANAGEMENT Pulse 94 09/14/2024 3:25 PM VICE PRESIDENT TALENT MANAGEMENT Temperature - - Respiratory Rate 18 05/12/2022 8:03 AM CDT Oxygen Saturation 96% 09/14/2024 3:25 PM VICE PRESIDENT TALENT MANAGEMENT Inhaled Oxygen Concentration - - Weight 88 kg (194 lb) 09/14/2024 3:25 PM VICE PRESIDENT TALENT MANAGEMENT Height 167.6 cm (5' 6) 09/14/2024 3:25 PM VICE PRESIDENT TALENT MANAGEMENT Body Mass Index 31.31 09/14/2024 3:25 PM VICE PRESIDENT TALENT MANAGEMENT Plan of Treatment Health Maintenance Due Date [...] patient's age to complete this topic Insurance [employer] [facility] Care Teams Shoemaking Cutter Relationship Specialty Start Date End Date Yon Perez DO [address] [facility] [[email or web address] [address] [place], [place] [id number] PCP - General Internal Medicine 05/25/24
--- OUTSIDE RECORDS SUMMARY | 2025-01-30 08:49 | XMS_ITS | Referral Summary ---
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 Gender Identity Not on file Sexual Orientation Not on file Last Filed Vital Signs Vital Sign Reading Time Taken Comments Blood Pressure 118/96 09/14/2024 3:25 PM TRUCK DRIVING INSTRUCTOR Pulse 94 09/14/2024 3:25 PM TRUCK DRIVING INSTRUCTOR Temperature - - Respiratory Rate 18 05/12/2022 8:03 AM CDT Oxygen Saturation 96% 09/14/2024 3:25 PM TRUCK DRIVING INSTRUCTOR Inhaled Oxygen Concentration - - Weight 88 kg (194 lb) 09/14/2024 3:25 PM TRUCK DRIVING INSTRUCTOR Height 167.6 cm (5' 6) 09/14/2024 3:25 PM TRUCK DRIVING INSTRUCTOR Body Mass Index 31.31 09/14/2024 3:25 PM TRUCK DRIVING INSTRUCTOR Plan of Treatment Not on file [place] Care Teams Shipping Receiving Manager Relationship Specialty Start Date End Date Yon Perez DO [address] [facility] [address] [place] [address] PCP - General Internal Medicine 05/25/24
--- OUTSIDE RECORDS SUMMARY | 2025-01-30 08:50 | XMS_ITS | Encounter Summary ---
Author Organization [facility] Address Formerly [facility] [place] [address] Care Team Providers Care Early Childhood Education Worker Name Role Phone Yosef Guadalupe MD Primary Care Provider [phone] Encounter Details Date Type Department Care Team (Late st Contact Info) Description 08/17/2019 Hospital Orders Only [facility] City Distribution Clerk [address] [place], [place] [address] Tres Puente MD [address] 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 Answer Date of Assessment Author Status No 08/17/2019 9:53 AM TIP PUNCHER Activ e * Do you have serious difficulty walking or climbing stairs? Answer Date of Assessment Author Status No 08/17/2019 9:53 AM TIP PUNCHER Mony Garcia C RNA Active * Do you have difficulty dressing or bathing? Answer Date of Assessment Author Status No 08/17/2019 9:53 AM Mony Briseno C RNA Active * Because of a physical, mental, or emotional condition, do you have difficulty doing errands alone such as visiting a doctor's office or shopping? Answer Date of Assessment Author Status No 08/17/2019 9:53 AM TIP PUNCHER Mony Garcia C RNA Active documented as [...] Rule Out 08/01/2020 08/01/2020 08/05/2020 10:44 AM TIP PUNCHER COVID-19 Confirmed 08/01/2020 08/01/2020 12:34 AM TIP PUNCHER documented as of this encounter Care Teams Early Childhood Education Worker Relationship Specialty Start Date End Date Yosef Guadalupe MD [address] [place] [address] PCP - General INTERNAL MEDICINE 01/23/19 documented as of this encounter
--- OUTSIDE RECORDS SUMMARY | 2025-01-30 08:50 | XMS_ITS | Data Portability ---
Author Organization [place] [facility], Main Office Address [address] [place] [address] Care Team Providers Care Vp Communications Name Role Phone GIULIANO EDGE Primary Care Provider [phone] GIULIANO EDGE Referring Provider [phone] Assessment Encounter Date Assessment Date Assessment LastModified [...] patient more than half of this in sorq-fu-ajkg conversation matteo Not available 04/12/2023 15:36:55 05/14/2023 05/14/2023 impression: [...] more than half the time spent in ioty-rf-irwe care for Not available 05/15/2023 15:23:16 Plan of Treatment Reminders Order Date Submit Date Provider Last Modified By Organization Details Last Modified Time Details Appointments None recorded. Lab None recorded. Referral None recorded. Procedures None recorded. Surgeries None recorded. Imaging XR, cervical spine, 2 or 3 view 2022 023 [email or web address] [facility] [place], [facility] [address], [place], [address], 16:24:39 Medication Orders Medrol (Bigg) 4 mg tablets in a dose pack 2022 023 [email or web address] [facility] [address] [place], [address], 15:39:33 Patient TargetsNo targets recorded. Patient InstructionsNo instructions recorded. Reason for Referral None Reported. Results Created Date Observation Date Name Description Value Unit Range Abnormal Flag Note LastModifiedBy Organization Detail LastModifiedTime 03/07/20 21 XR, knee No observ ation record ed. [id number] [facility] [address] [facility] [address], [place], [address], 09/30/2022 06:08:16 03/24/2003/19/2023 XR, shoul ginger, 2 or more view No observ ation record ed. [email or web address] Not Available 03/03 10:48:47 04/12/20 XR, cervi sumeet spine , 2 or 3 view No observ ation record ed. [email or web address] [facility] [place] [address] [facility] [address], [place], [address], 04/12/2023 15:29:36 06/01/2005/31/2023 MRI, cervi sumeet spine , w/o contr ast No observ ation record ed. [email or web address] [facility] [address], [place], [address], 06/01/2023 10:01:17 Result Notes None recorded. Problems Name Problem SNOMED Code Status Onset Date Resolution Date Notes Provider Name and Address Organization Details Recorded Time Disorder of thyroid gland 81272934 Active 2018 Not Available [facility] 3 06:01:58 Hypertensi ve disorder 93000465 Active 2018 Not Available [facility] 3 06:01:58 Pain of right shoulder joint 2837736691280 9100 Active 2022 MIKE Santa, [employer] [facility] 3 14:33:42 Neck pain 84248938 Active 2022 Belia Yu CMA null, [employer] 3 15:23:36 Spinal stenosis in cervical region 92516817 Active 2022 CARLOZ Preston, [facility] 3 16:17:18 Problem Notes None recorded. Procedures Surgical History Date Name Laterality Status Provider Name and Address Organization Details Recorded Time Back Surgery completed MIKE Santa [facility] 04/12/2023 14:32:05 Hysterectomy completed MIKE Santa [facility] 04/12/2023 14:32:11 Knee Replacement completed Maria Dolores pedraza Josue [facility] 04/12/2023 14:32:23 Imaging Results None recorded. Procedure Notes None recorded. Medical Equipment None Reported. Allergies Allergen ID Allergen Name Allergen Category Reaction Reaction Severity Criticality Documentation Date Start Date Code Code System Note Provider Name and Address Organization Details Recorded Time 56924 Non-stero idal anti-infl ammatory agent (product) medicatio n Not available Not available Not available 04/12/2023 79382 005 SNOMED MIKE Santa [facility] 14:30:24 Medications Name Sig Start Date Stop [...] Updated DateTime 03/07/2021 167.64 cm Not Available [facility] 06:01:06 Date Recorded Body height Body mass index (BMI) Body weight Provider Name and Address Organization Details Last Updated DateTime 04/12/2023 167.64 cm 29.4 kg/m2 50657.81 g MIKE Santa [employer] [facility] [employer] 04/12/2023 14:35:58 Date Recorded Body height Provider Name an d Address Organization Details Last Updated DateTime 05/14/2023 167.64 cm Maria Dolores [place] Josue [employer] [facility] [employer] [facility] 05/14/2023 09:44:11 Social History None recorded. Functional Status Question Answer Note LastModified by Organizat ion Details LastModified Time What is your level of alcohol consumption? Occasional [email or web address] Information not available 04/12/2023 Mental Status None recorded. Family History Relationship Description Onset Age of this Age Resolved Age Notes LastModified by Organization Details LastModified Time Father Heart disease [email or web address] Not available 2022 14:30:39 Father Hypertensive disorder [email or web address] Not available 2022 14:31:06 Father Diabetes mellitus [email or web address] Not available 2022 14:31:36 Mother Family history of stroke Not available 2022 14:30:51 Brother Hypertensive disorder [email or web address] Not available 2022 14:31:06 Daughter Diabetes mellitus [email or web address] Not available 2022 14:31:36 Medical History Condition Response ARTHRITIS Y BLOOD CLOTS Y ULCERS Y HEART DISEASE/HEART PROBLEMS Y HYPERTENSION Y Gynecological HistoryNo gynecological history recorded. Obstetrics History GPAL:G 0 P 0 0 0 0 Past Encounters Encounter ID Performer Location Encounter Start Date Encounter Closed Date Diagnosis/Indication Diagnosis SNOMED-CT Code Diagnosis ICD10 Code Diagnosis Note [id number] MD KATHY Eli [facility] [address] [place] [address] 03/07/2021 00:00:00 03/07/2021 10:08:01 [id number] Constantine Matt, MD [facility] [address] [place] [address] 04/12/2023 14:02:39 04/12/2023 16:24:39 Pain of right shoulder joint 0338507610 0954108 M25.511 Neck pain 65003139 M54.2 [id number] Constantine Gutierrez MD [facility] [address] [place] [address] 05/14/2023 09:39:53 05/17/2023 11:40:15 Pain of right shoulder joint 2708192993 5573731 M25.511 Neck pain 96425661 M54.2 Health Concerns Section Related Observation LastModified by Organization Detai ls LastModified Time None Recorded Concern Status LastModified by Organization Details LastModified Time None Recorded Advance Directives Directive None Recorded Payers Insurance Date Sequence Insurance Name Policy Number Policy Velarde Covered Member ID Velarde Member ID Guarantor Name 05/18/2023 1 [place]) [id number] Rodrigo Foster [id number] October Cristian Notes Date Note Type Note [...] from heavy work. She recently open to [employer] in September of this year. 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 Constantine Gutierrez MD [address] [place] [address], [facility] [address], [place], [address], [place] [facility] 05/15/2023 15:23:29 OBGyn Episode No OBEpisode recorded.
--- OUTSIDE RECORDS SUMMARY | 2025-01-30 08:50 | XMS_ITS | Encounter Summary ---
Author Organization [facility] Address Formerly [facility], [address] [place] [address] Care Team Providers Care Die Sizer Name Role Phone Yosef Guadalupe MD Primary Care Provider [phone] Encounter Details Date Type Department Care Team (Late st Contact Info) Description 08/17/2019 Pre-Procedure Call 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 Answer Date of Assessment Author Status No 08/17/2019 9:53 AM COLOR STRIPPER Activ e * Do you have serious difficulty walking or climbing stairs? Answer Date of Assessment Author Status No 08/17/2019 9:53 AM COLOR STRIPPER Mony Garcia C RNA Active * Do you have difficulty dressing or bathing? Answer Date of Assessment Author Status No 08/17/2019 9:53 AM Mony Briseno C RNA Active * Because of a physical, mental, or emotional condition, do you have difficulty doing errands alone such as visiting a doctor's office or shopping? Answer Date of Assessment Author Status No 08/17/2019 9:53 AM COLOR STRIPPER Mony Garcia C RNA Active documented as [...] Rule Out 08/01/2020 08/01/2020 08/05/2020 10:44 AM COLOR STRIPPER COVID-19 Confirmed 08/01/2020 08/01/2020 12:34 AM COLOR STRIPPER documented as of this encounter Care Teams Die Sizer Relationship Specialty Start Date End Date Yosef Guadalupe MD [address] [place] [address] PCP - General INTERNAL MEDICINE 01/23/19 documented as of this encounter
--- OUTSIDE RECORDS SUMMARY | 2025-01-30 08:50 | XMS_ITS | Clinical Summary ---
Author Organization [facility] Address [facility] [place] [address] Care Team Providers Care Extension Service Agent Name Role Phone Yosef Guadalupe MD Primary Care Provider [phone] Allergies Active Allergy Reactions Criticality Noted Date Comments Nsaids Other (see comment) Low 05/20/2021 H/o ulcers Medications Levothyroxine Sodium 112 MCG Cap Take 112 mcg by mouth daily. 04/09/2019 Active aspirin 81 MG chewable tablet Chew 1 tablet (81 mg total) by mouth daily. Active carvedilol 25 MG tablet Take 0.5 tablets (12.5 mg total) by mouth 2 (two) times daily. Active escitalopram (LEXAPRO) 10 MG tablet Take 1 tablet (10 mg total) by mouth daily. 10/30/2022 Active celecoxib (CELEBREX) 100 MG capsule Take 1 capsule (100 mg total) by mouth 2 (two) times daily. Active sacubitril-vals uyen (ENTRESTO) 49-51 MG tablet Take 1 tablet by mouth 2 (two) times daily. Active pantoprazole EC (PROTONIX) 40 MG tablet Take 1 tablet (40 mg total) by mouth every morning. 10/24/2024 Active pitavastatin (LIVALO) 2 MG Tab Take 1 tablet (2 mg total) by mouth daily. Active Active Problems Problem Noted Date Diagnosed Date Neck pain 04/21/2023 Hyperlipidemia LDL goal <70 09/08/2019 [place] (myocardial infarction) 09/08/2019 JACOB on CPAP 09/08/2019 NICM (nonischemic cardiomyopathy) ([facility]) 08/20/2019 Left ventricular thrombus 08/20/2019 Acquired hypothyroidism 08/20/2019 Pulmonary emboli ([facility]) 08/17/2019 Disorder of thyroid gland 05/08/2019 Arthritis 01/27/2013 Hypertension 01/27/2013 Pain in extremity 01/27/2013 Encounters Date Type Department Care Team Description 11/15/2024 2:52 PM CDT - 11/15/2024 3:43 PM CDT Emergency [facility] [address] [place] [address] Julita Staley MD Laceration Discharge Disposition: Home or Self Care (Routine Discharge) 11/15/2024 Travel from Last 3 Months Family History Medical History Relation Comments Heart [...] Sign Reading Time Taken Comments Blood Pressure 144/109 11/15/2024 3:00 PM CDT Pulse 101 11/15/2024 3:00 PM CDT Temperature 36.8 C (98.2 F) 11/15/2024 3:00 PM CDT Respiratory Rate 18 11/15/2024 3:00 PM CDT Oxygen Saturation 95% 11/15/2024 3:00 PM CDT Inhaled Oxygen Concentration - - Weight 85.3 kg (188 lb) 11/15/2024 3:00 PM CDT Height 170.2 cm (5' 7) 11/15/2024 3:00 PM CDT Body Mass Index 29.44 11/15/2024 3:00 PM CDT Plan of Treatment Health Maintenance Due Date Last Done Comments Colorectal Cancer Screening Colonoscopy (10 Years) 1962 Annual Physical 1965 Hepatitis C 02/19/1980 DTaP, Tdap and Td Vaccines (1 - Tdap) 1981 Pneumococcal Vaccine: 50+ Years (1 of 2 - PCV) 1981 Mammogram Screening 2002 Zoster Vaccines (1 of 2) 02/19/2012 RSV Immunization or 60+ Years (1 - Risk 60-74 years 1-dose series) 2022 ASCVD LDL 07/20/2022 07/20/2021, 04/02, 10/13/2020, Additional history exists COVID-19 Vaccine ( season) 2024 11/13/2020, 10/16/2020 Meningococcal B Vaccine Aged Out No l onger eligible based on patient's age to complete this topic Meningococcal Vaccine Aged Out No deniec gwendolyn eligible based on patient's age to complete this topic RSV Immunizations Under 20 Months Aged Out No longer eligible based on patient's age to complete this topic Procedures Procedure Name Priority Date/Time Associated Diagnosis Comments LACERATION REPAIR Routine 11/15/2024 3:4 4 PM CDT XR THIRD FINGER LT 3V STAT 11/15/2024 3:11 PM CDT LIPID PANEL Routine 07/20/2021 7:20 AM [employer] Blood tests for routine general physical examination from Last 3 Months or Most Recently Relevant to Health Maintenance Results * Lac Repair (11/15/2024 3:44 PM CDT) Julita Bledsoe MD - 11/15/2024 3:44 PM CDT Julita Staley MD 11/15/2024 3:45 PM Lac Repair Date/Time: 11/15/2024 3:44 PM Performed by: Julita Staley MD Authorized by: Julita Staley MD Consent: Consent obtained: Verbal Consent given by: Patient Risks discussed: Infection and poor wound healing [place] protocol: Procedure explained and questions answered to patient or proxy's satisfaction: yes Imaging studies available: yes Patient identity confirmed: Verbally with patient Anesthesia: Anesthesia method: None Laceration details: Location: Finger Finger location: L long finger Length (cm): 0.6 Depth (mm): 1 Pre-procedure details: Preparation: Patient was prepped and draped in usual sterile fashion Exploration: Limited defect created (wound extended): no Wound extent: no foreign bodies/material noted, no muscle damage noted, no nerve damage noted, no tendon damage noted, no underlying fracture noted and no vascular damage noted Contaminated: no Treatment: Area cleansed with: Shur-Clens Amount of cleaning: Standard Debridement: None Undermining: None Skin repair: Repair method: Tissue adhesive Approximation: Approximation: Close Repair type: Repair type: Simple Post-procedure details: Dressing: Open (no dressing) Procedure completion: Tolerated well, no immediate complications us Julita Staley MD PROCEDURE/MINOR SURGICAL OR DERABLES Final Result * XR THIRD FINGER LT 3V (11/15/2024 3:11 PM CDT) Anatomical Region Laterality Modality Hand Radiographic Amber ging 11/15/2024 3:13 PM CDT Impressions 11/15/2024 3:14 PM CDT IMPRESSION: No acute findings. Ordered By: JULITA STALEY Interpreted By: Luan Child MD, 11/15/2024 3:13 PM Narrative 11/15/2024 3:14 PM CDT [address] [place] [address] Examination: Left third digit. Exam time: 1505 hours. Clinical history: Laceration to the finger tip. Pain. Comparison: None. Technique: Three views. Findings: No fracture, dislocation or other acute bony abnormality is identified. No other significant bone or joint abnormality is noted. The soft tissues are unremarkable. No soft tissue gas or foreign body is identified. Procedure Note Luan Child MD - 11/15/[address] [place] [address] Examination: Left third digit. Exam time: 1505 hours. Clinical history: Laceration to the finger tip. Pain. Comparison: None. Technique: Three views. Findings: No fracture, dislocation or other acute bony abnormality isidentified. No other significant bone or joint abnormality is noted. Thesoft tissues are unremarkable. No soft tissue gas or foreign body isidentified. IMPRESSION: No acute findings. Ordered By: JULITA STALEY Interpreted By: Luan Child MD, 11/15/2024 3:13 PM us Julita Staley MD GENERAL IMAGING Final Resul t * (ABNORMAL) LIPID PANEL (07/20/2021 7:20 AM [employer]IND[employer] INSPECTOR AND TE[employer]) CHOLESTEROL 185 <200 MG/DL 07/20/2021 8:12 AM [facility] Comment: THE NATIONAL LIPID ASSOCIATION AND THE NATIONAL CHOLESTEROL EDUCATION PROGRAM (NCEP) HAVE SET THE FOLLOWING GUIDELINES FOR TOTAL CHOLESTEROL IN ADULTS AGES 18 AND UP. DESIRABLE: <200 BORDERLINE HIGH: 200-239 HIGH: > OR = 240 TRIGLYCERIDES 71 <150 MG/DL 07/20/2021 8:12 AM [facility] Comment: THE NATIONAL LIPID ASSOCIATION AND THE NATIONAL CHOLESTEROL EDUCATION PROGAM (NCEP) HAVE SET THE FOLLOWING GUIDELINES FOR TRIGLYCERIDES IN ADULTS AGES 18 AND UP. NORMAL: <150 BORDERLINE HIGH: 150 TO 199 HIGH: 200 TO 499 VERY HIGH: >499 HDL 62 >49 MG/DL 07/20/2021 8:12 AM [facility] Comment: THE NATIONAL LIPID ASSOCIATION AND THE NATIONAL CHOLESTEROL EDUCATION PROGAM (NCEP) HAVE SET THE FOLLOWING GUIDELINES FOR HDL CHOLESTEROL IN ADULTS AGES 18 AND UP. MALES: >39 FEMALES: >49 LDL (CALCULATED) 109(H) <100 MG/DL 07/20/20 8:12 AM [facility] Comment: THE NATIONAL LIPID ASSOCIATION AND THE NATIONAL CHOLESTEROL EDUCATION PROGAM (NCEP) HAVE SET THE FOLLOWING GUIDELINES FOR LDL CHOLESTEROL IN ADULTS AGES 18 AND UP. DESIRABLE: <100 ABOVE DESIRABLE: 100 TO 129 BORDERLINE HIGH: 130 TO 159 HIGH: 160 TO 189 VERY HIGH: >189 VLDL CALCULATION 14 MG/DL 07/20/20 8:12 AM [facility] Comment:REFERENCE RANGE NOT ESTABLISHED CHOL/HDL RATIO 3.0 07/20/2021 8:12 AM [facility] Comment:REFERENCE RANGE NOT ESTABLISHED LDL/HDL 1.8 07/20/2021 8:12 AM [facility] Comment:REFERENCE RANGE NOT ESTABLISHED NON HDL CHOLESTEROL 123 MG/DL 07/20/2021 8:12 AM [employer]LINDER INSPECTOR AND TESTER [facility] Comment:REFERENCE RANGE NOT ESTABLISHED 07/20/2021 7:20 AM [employer]IND[employer] INSPECTOR AND TESTER Lamine Reis PA-C LABORATORY Final Resul t [facility] [address] [id number], from Last 3 Months or Most Recently Relevant to Health Maintenance Insurance Advance Directives * Full Code (Latest Code Status on File) Date Activated Date Inactivated Comments 08/17/2019 4:42 AM 08/21/2019 2:58 PM Care Teams Extension Service Agent Relationship Specialty Start Date End Date Yosef Guadalupe MD [address] [place] [address] PCP - General INTERNAL MEDICINE 01/23/19
[2025-01-30 15:49] LABS: Alanine Aminotransferase 16 U/L (6-35); Albumin Level 4.1 g/dL (3.5-5.1); Alkaline Phosphatase 42 U/L (38-126); Anion Gap 8 mmol/L (4-12); Aspartate Amino Transferase 50 U/L (14-36); Bilirubin,Total 0.4 mg/dL (0.2-1.3); Blood Urea Nitrogen 23 mg/dL (7-17); Calcium 9.7 mg/dL (8.4-10.2); Carbon Dioxide 26 mmol/L (22-30); Chloride 105 mmol/L (98-107); Cholesterol 209 mg/dL (0-200); Estimated Glomerular Filt Rate 54; Glucose 70 mg/dL (65-110); HDL Direct 68 mg/dL; Potassium 4.2 mmol/L (3.4-5.0); Sodium 139 mmol/L (137-145); Total Protein 6.8 g/dL (6.3-8.2); Triglycerides 99 mg/dL (<150)
[2025-01-30 16:04] LABS: Hematocrit 42.0 % (37.0-47.0); Hemoglobin 13.5 g/dL (12.0-15.0); Immature Granulocyte Percent A 0.0 % (0-0.5); Lymphocytes Absolute Auto 1.33 K/mm3 (0.9-3.2); Mean Corpuscular HGB Conc 32.1 g/dl (32-36); Mean Corpuscular Hemoglobin 29.5 pg (26-34); Mean Corpuscular Volume 91.7 fl (80-100); Nucleated Red Blood Cells Absolute Auto 0.000 K/mm3 (0.0-0.012); Nucleated Red Blood Cells Perc 0.0 % (0.0-0.2); Platelet Count Result 200 k/mm3 (150-375); Red Blood Count 4.58 M/mm3 (4.2-5.4); White Blood Count 3.4 K/mm3 (4.5-10.0)
[2025-01-30 16:19] LABS: Thyroid Stimulating Hormone 0.232 uIU/mL (0.465-4.680)
== END 2025-01-30 08:46 | disposition home or self-care (01) ==
LOC: ANHGOSHLAB 08:46
PROVIDERS: PCP Nurse Practitioner; Visit Provider Nurse Practitioner
DX: E03.9 Hypothyroidism, unspecified (principal); E55.9 Vitamin D deficiency, unspecified; Z13.29 Encounter for screening for other suspected endocrine disorder; E78.5 Hyperlipidemia, unspecified
CPT/HCPCS: 36415; 80053; 80061; 82306; 84443; 85025

== ENCOUNTER 2025-02-14 10:25 | Outpatient (CLI) | payer BC, SELFPAY ==
--- NOTE | ~2025-02-14 | XR_ITS ---
XR foot RT min 3V Ordering provider: Alicia Negrete NP History: . Pain/swelling dorsal Rt foot /5th MTs injury 1.5 mos ago . Comparison: None. FINDINGS: BONES: Healing fracture in the distal metaphysis of the fourth metatarsal bone. JOINT SPACES: Narrowing of the proximal and distal interphalangeal joints. No tarsal coalition. SOFT TISSUES: Normal. IMPRESSION: Healing fracture in the distal metaphysis of the fourth metatarsal bone. Polyarticular osteoarthritic changes. Reviewed, dictated and finalized at location A.
== END 2025-02-14 10:26 | disposition home or self-care (01) ==
LOC: GOSHIMG 10:25
PROVIDERS: PCP Nurse Practitioner; Visit Provider Nurse Practitioner
DX: S92.344A Nondisplaced fracture of fourth metatarsal bone, right foot, initial encounter for closed fracture (principal); X58.XXXA Exposure to other specified factors, initial encounter
CPT/HCPCS: 73630

== ENCOUNTER 2025-04-09 13:06 | Outpatient (CLI) | payer BC, SELFPAY ==
--- NOTE | ~2025-04-09 | US_ITS ---
EXAMINATION: US soft tissue head and neck DATE: 04/09/2025 13:19 INDICATION: 3 lumps on the 4 head with other follicular cysts at the skin TECHNIQUE: Multiple grayscale and Doppler ultrasound images of the region of concern at the left forearm were obtained. COMPARISON: None FINDINGS: At each of the lesions of concern there is a well-defined linear echogenic margins with posterior shadowing lying deep to the soft tissues of the scalp and projecting up to 2 mm above level of the smooth linear echogenic and shadowing skull. Appearance would be most consistent with small osteomas. Surrounding soft tissues are unremarkable. IMPRESSION: 1. Palpable abnormality of concern corresponds to 3 small smooth projections of shadowing bone from the skull most consistent with osteomas. If clinically indicated could consider CT for confirmation. Reviewed, dictated and finalized at location A. IMPRESSION: 1. Palpable abnormality of concern corresponds to 3 small smooth projections of shadowing bone from the skull most consistent with osteomas. If clinically ind icated could consider CT for confirmation.
== END 2025-04-09 13:07 | disposition home or self-care (01) ==
LOC: GOSHIMG 13:06
DX: L72.8 Other follicular cysts of the skin and subcutaneous tissue (principal)
CPT/HCPCS: 76536